=== PATIENT | male | born 1940 | race Caucasian/White ===

== ENCOUNTER 2016-09-27 22:28 | Inpatient (IN) | payer MEDICARE ==
[2016-09-27] MEDS ORDERED: ASPIRIN 81 MG CHEW PO STA (22:34)
[2016-09-27] MEDS ORDERED: NITROGLYCERIN OINT 1 INCH/GM PACKET TOPICAL STA (22:34)
--- NOTE | 2016-09-27 22:46 | ED ---
General Adult HPI - General Chief complaint: Chest Pain Stated complaint: CHEST PAIN Time Seen by Provider: 09/27/16 22:30 Source: patient, family, EMS, RN notes reviewed Mode of arrival: EMS Limitations: no limitations - History of Present Illness Initial comments: Patient is a pleasant 76-year-old male presenting to the emergency department complaining of chest discomfort. Onset of symptoms was 2 hours ago. Symptoms have now resolved in route to the hospital. Patient describes discomfort as pressure without radiation. Patient does have associated dyspnea. No nausea or diaphoresis. Patient was slightly nauseated a few days ago. Patient did have similar symptoms yesterday with exertion. Patient is currently symptom- free. No history of similar symptoms prior to yesterday. No leg pain or swelling. No cough or fever. - Related Data Home Medications Medication Instructions Recorded Confirmed Aspirin 325 mg PO DAILY 09/27/16 09/27/16 Gemfibrozil [Lopid] 600 mg PO AC-BID 09/27/16 09/27/16 Lisinopril-Hctz 10-12.5 mg 1 tab PO DAILY 09/27/16 09/27/16 [Zestoretic 10-12.5] Meloxicam [Mobic] 7.5 mg PO BID 09/27/16 09/27/16 metFORMIN HCL 1,000 mg PO BID 09/27/16 09/27/16 Allergies Allergy/AdvReac Type Severity Reaction Status Date / Time morphine AdvReac Increased Verified 09/27/16 23:23 Blood Pressure Review of Systems ROS Statement: Those systems with pertinent positive or pertinent negative responses have been documented in the HPI. ROS Other: All systems not noted in ROS Statement are negative. Constitutional: Denies: fever Eyes: Denies: eye pain ENT: Denies: ear pain Respiratory: Reports: dyspnea. Denies: cough Cardiovascular: Reports: chest pain Endocrine: Denies: fatigue Gastrointestinal: Denies: abdominal pain Genitourinary: Denies: dysuria Skin: Denies: rash Neurological: Denies: weakness Past Medical History Past Medical History: Diabetes Mellitus, Hearing Disorder / Deafness, Hyperlipidemia, Hypertension Additional Past Medical History / Comment(s): Arthritis History of Any Multi-Drug Resistant Organisms: None Reported Past Surgical History: No Surgical Hx Reported Past Psychological History: No Psychological Hx Reported Smoking Status: Former smoker Past Alcohol Use History: Occasional Past Drug Use History: None Reported General Exam Limitations: no limitations General appearance: alert, in no apparent distress Head exam: Present: atraumatic Eye exam: Present: normal appearance, PERRL ENT exam: Present: normal oropharynx Neck exam: Present: normal inspection Respiratory exam: Present: normal lung sounds bilaterally Cardiovascular Exam: Present: regular rate, normal rhythm Expanded Peripheral pulses: 2+: Radial (R), Radial (L), Dorsalis Pedis (R), Dorsalis Pedis (L) GI/Abdominal exam: Present: soft. Absent: tenderness Extremities exam: Present: normal inspection. Absent: pedal edema, calf tenderness Neurological exam: Present: alert Psychiatric exam: Present: normal affect, normal mood Skin exam: Present: normal color Course Vital Signs 09/27/16 09/27/16 09/28/16 22:34 23:24 00:46 Temperature 98.4 F 97.8 F Pulse Rate 63 65 68 Respiratory 16 16 16 Rate Blood Pressure 115/69 141/70 101/60 O2 Sat by Pulse 96 100 99 Oximetry EKG Findings - EKG Comments: EKG Findings:: Normal sinus rhythm 66. Normal intervals. Normal axis. Normal QRS. Normal ST-T. Medical Decision Making - Medical Decision Making Patient reevaluated and resting comfortably in bed. Patient and family updated on results and plan. Case was discussed with Dr. Bledsoe, who will admit for Dr. palacios, covering for Dr. Carrero. - Lab Data Result diagrams: 09/27/16 22:35 09/27/16 22:35 Lab Results 09/27/16 09/27/16 09/27/16 Range/Units 22:35 22:35 22:35 WBC 6.9 (3.8-10.6) k/uL RBC 3.12 L (4.30-5.90) m/uL Hgb 10.7 L (13.0-17.5) gm/dL Hct 30.4 L (39.0-53.0) % MCV 97.6 (80.0-100.0) fL MCH 34.4 (25.0-35.0) pg MCHC 35.2 (31.0-37.0) g/dL RDW 14.0 (11.5-15.5) % Plt Count 284 (150-450) k/uL Neutrophils % 63 % Lymphocytes % 22 % Monocytes % 5 % Eosinophils % 7 % Basophils % 1 % Neutrophils # 4.3 (1.3-7.7) k/uL Lymphocytes # 1.5 (1.0-4.8) k/uL Monocytes # 0.3 (0-1.0) k/uL Eosinophils # 0.5 (0-0.7) k/uL Basophils # 0.1 (0-0.2) k/uL PT (9.0-12.0) sec INR (<1.1) APTT (22.0-30.0) sec D-Dimer (<0.60) mg/L FEU Sodium 140 (137-145) mmol/L Potassium 4.7 (3.5-5.1) mmol/L Chloride 109 H (98-107) mmol/L Carbon Dioxide 21 L (22-30) mmol/L Anion Gap 10 mmol/L BUN 25 H (9-20) mg/dL Creatinine 1.70 H (0.66-1.25) mg/dL Est GFR (MDRD) Af Amer 48 (>60 ml/min/1.73 sqM) Est GFR (MDRD) Non-Af 39 (>60 ml/min/1.73 sqM) Glucose 191 H (74-99) mg/dL Calcium 9.3 (8.4-10.2) mg/dL Magnesium 2.0 (1.6-2.3) mg/dL Total Bilirubin 0.3 (0.2-1.3) mg/dL AST 16 L (17-59) U/L ALT 25 (21-72) U/L Alkaline Phosphatase 77 (38-126) U/L Total Creatine Kinase 254 H (55-170) U/L CK-MB (CK-2) 3.0 H* (0.0-2.4) ng/mL CK-MB (CK-2) Rel Index 1.2 Troponin I 0.017 (0.000-0.034) ng/mL NT-Pro-B Natriuret Pep pg/mL Total Protein 6.8 (6.3-8.2) g/dL Albumin 4.1 (3.5-5.0) g/dL 09/27/16 09/27/16 Range/Units 22:35 22:35 WBC (3.8-10.6) k/uL RBC (4.30-5.90) m/uL Hgb (13.0-17.5) gm/dL Hct (39.0-53.0) % MCV (80.0-100.0) fL MCH (25.0-35.0) pg MCHC (31.0-37.0) g/dL RDW (11.5-15.5) % Plt Count (150-450) k/uL Neutrophils % % Lymphocytes % % Monocytes % % Eosinophils % % Basophils % % Neutrophils # (1.3-7.7) k/uL Lymphocytes # (1.0-4.8) k/uL Monocytes # (0-1.0) k/uL Eosinophils # (0-0.7) k/uL Basophils # (0-0.2) k/uL PT 10.5 (9.0-12.0) sec INR 1.0 (<1.1) APTT 24.8 (22.0-30.0) sec D-Dimer 0.47 (<0.60) mg/L FEU Sodium (137-145) mmol/L Potassium (3.5-5.1) mmol/L Chloride (98-107) mmol/L Carbon Dioxide (22-30) mmol/L Anion Gap mmol/L BUN (9-20) mg/dL Creatinine (0.66-1.25) mg/dL Est GFR (MDRD) Af Amer (>60 ml/min/1.73 sqM) Est GFR (MDRD) Non-Af (>60 ml/min/1.73 sqM) Glucose (74-99) mg/dL Calcium (8.4-10.2) mg/dL Magnesium (1.6-2.3) mg/dL Total Bilirubin (0.2-1.3) mg/dL AST (17-59) U/L ALT (21-72) U/L Alkaline Phosphatase (38-126) U/L Total Creatine Kinase (55-170) U/L CK-MB (CK-2) (0.0-2.4) ng/mL CK-MB (CK-2) Rel Index Troponin I (0.000-0.034) ng/mL NT-Pro-B Natriuret Pep 148 pg/mL Total Protein (6.3-8.2) g/dL Albumin (3.5-5.0) g/dL Critical Care Time Critical Care Time: Yes Total Critical Care Time: 31 Disposition Clinical Impression: Unstable angina pectoris Disposition: ADMITTED IP TO THIS [facility] Referrals: Yuriy Carrero MD [Primary Care Provider] - 1-2 days Decision Time: 01:04
--- NOTE | 2016-09-27 22:54 | XR ---
EXAM: XR Chest, 2 Views CLINICAL HISTORY: Reason: Chest Pain TECHNIQUE: Frontal and lateral views of the chest. COMPARISON: No relevant prior studies available. FINDINGS: Lungs: Unremarkable. No consolidation. Pleural space: No pleural effusion. No pneumothorax. Heart: Unremarkable. No cardiomegaly. Mediastinum: Unremarkable. Bones/joints: No acute findings. IMPRESSION: No acute cardiopulmonary disease.
[2016-09-27 23:24] LABS: Basophils # (A) 0.1 k/uL (0-0.2); Basophils % (A) 1 %; CH 33.3; CHCM 34.3; Eosinophils # (A) 0.5 k/uL (0-0.7); Eosinophils % (A) 7 %; HCT 30.4 % (39.0-53.0); HDW 2.92; HGB 10.7 gm/dL (13.0-17.5); Luc % (Auto) 3; Lymphocytes # (A) 1.5 k/uL (1.0-4.8); Lymphocytes % (A) 22 %; MCH 34.4 pg (25.0-35.0); MCHC 35.2 g/dL (31.0-37.0); MCV 97.6 fL (80.0-100.0); Mean Platelet Volume 7.7; Monocytes # (A) 0.3 k/uL (0-1.0); Monocytes % (A) 5 %; Neutrophils # (A) 4.3 k/uL (1.3-7.7); Neutrophils % (A) 63 %; RBC 3.12 m/uL (4.30-5.90); WBC 6.9 k/uL (3.8-10.6); WBC (Perox) 7.17
[2016-09-27 23:35] LABS: Calcium 9.3 mg/dL (8.4-10.2); Potassium 4.7 mmol/L (3.5-5.1); Total Bilirubin 0.3 mg/dL (0.2-1.3); Total Protein 6.8 g/dL (6.3-8.2)
[2016-09-27 23:47] LABS: Partial Thromboplastin Time 24.8 sec (22.0-30.0); Prothrombin Time 10.5 sec (9.0-12.0)
[2016-09-28] LABS: Troponin I 0.017 ng/mL (0.000-0.034)
[2016-09-28] MEDS ORDERED: NITROGLYCERIN SL TABS 0.4 MG TAB SUBLINGUAL PRN ×2 (01:04→11:11)
[2016-09-28] MEDS ORDERED: HEPARIN SODIUM,PORCINE 5,000 UNIT/ML 1 ML VIAL IV ONE (01:04)
[2016-09-28] MEDS: HEPARIN SODIUM,PORCINE/D5W PMX 25,000 UNIT in DEXTROSE/WATER 1 500ML.BAG IV SCH ×2 (01:20→21:12)
[2016-09-28 04:39] LABS: Mean Platelet Volume 8.1
[2016-09-28 05:13] LABS: Creatine Kinase MB 3.1 ng/mL (0.0-2.4); Troponin I 0.085 ng/mL (0.000-0.034)
[2016-09-28] MEDS: NITROGLYCERIN OINT 1 INCH/GM PACKET TOPICAL SCH ×3 (05:54→17:28)
[2016-09-28] MEDS ORDERED: GEMFIBROZIL 600 MG TAB PO SCH (07:30)
[2016-09-28 07:41] LABS: Glucose,Whole Blood 140 mg/dL (75-99)
[2016-09-28] MEDS ORDERED: LISINOPRIL-HCTZ 10-12.5 MG 1 EACH TAB PO SCH (09:00)
[2016-09-28] MEDS ORDERED: ATORVASTATIN 80 MG TAB PO STA (11:11)
[2016-09-28] MEDS ORDERED: ASPIRIN 325 MG TAB PO STA (11:11)
[2016-09-28] MEDS ORDERED: ALPRAZolam 0.25 MG TAB PO PRN (11:11)
[2016-09-28] MEDS ORDERED: SODIUM CHLORIDE 0.9% 1,000 ML in EMPTY BAG 1 BAG IV ONE (11:11)
[2016-09-28] MEDS ORDERED: ALPRAZolam 0.5 MG TAB PO PRN (11:11)
--- NOTE | 2016-09-28 11:21 | P.CRDCN ---
History of Present Illness Consult date: 09/28/16 Requesting physician: Afshan Bledsoe Consult reason: chest pain Chief complaint: Chest pain History of present illness: This is a pleasant 76-year-old gentleman with history of hypertension , diabetes, hyperlipidemia, strong family history of premature coronary artery disease. Patient states he's been in his usual state of health, fairly active overall. [place], walking across a parking lot to his car, states that he has to stop [facility] because he developed chest pressure and mild shortness of breath. Symptoms lasted approximately 10 minutes and he was able to make it to his car without any problem. He had no further symptoms on the drive home. On arrival home he states that he ate one piece of pizza and shortly thereafter again developed severe chest pressure and heaviness with associated shortness of breath. EMS was called and the patient was brought to the hospital. Blood pressure on arrival here 116/68 with a heart rate in the 60s. 96% on room air. Hemoglobin 10.7, platelet count 284, d-dimer 0.47, potassium 4.7, BUN 25, creatinine 1.7. Initial troponin 0.017, subsequent troponin 0.085. EKG shows normal sinus rhythm with nonspecific ST-T wave changes in the lateral leads. Patient was initiated on IV heparin and aspirin. At the time of my examination this morning, patient has had no further symptoms of chest discomfort. Past Medical History Past Medical History: Diabetes Mellitus, Hearing Disorder / Deafness, Hyperlipidemia, Hypertension Additional Past Medical History / Comment(s): Arthritis History of Any Multi-Drug Resistant Organisms: None Reported Past Surgical History: Orthopedic Surgery Additional Past Surgical History / Comment(s): 10 knee surgeries, both rotator cuffs and left foot surgery Past Anesthesia/Blood Transfusion Reactions: No Reported Reaction Past Psychological History: No Psychological Hx Reported Smoking Status: Former smoker Past Drug Use History: None Reported - Past Family History Father Family Medical History: Cancer, Myocardial Infarction ([place]) Mother Family Medical History: Myocardial Infarction ([place]) Sister(s) Family Medical History: Cancer Daughter(s) Family Medical History: No Reported History Son(s) Family Medical History: No Reported History Medications and Allergies Home Medications Medication Instructions Recorded Confirmed Type Aspirin 325 mg PO DAILY 09/27/16 09/28/16 History Gemfibrozil [Lopid] 600 mg PO AC-BID 09/27/16 09/28/16 History Lisinopril-Hctz 10-12.5 mg 1 tab PO DAILY 09/27/16 09/28/16 History [Zestoretic 10-12.5] Meloxicam [Mobic] 7.5 mg PO BID 09/27/16 09/28/16 History metFORMIN HCL 1,000 mg PO BID 09/27/16 09/28/16 History Allergies Allergy/AdvReac Type Severity Reaction Status Date / Time morphine AdvReac Increased Verified 09/28/16 02:17 Blood Pressure Physical Exam Vitals: Vital Signs Temp Pulse Pulse Resp BP BP Pulse Ox 09/28/16 08:00 97.7 F 67 16 113/64 96 09/28/16 04:00 98 F 66 18 110/63 97 09/28/16 02:06 18 09/28/16 01:48 97.9 F 66 18 114/58 98 09/28/16 01:16 98 F 64 16 117/67 100 09/28/16 00:46 97.8 F 68 16 101/60 99 09/27/16 23:24 65 16 141/70 100 09/27/16 22:34 98.4 F 63 16 115/69 96 Intake and Output 09/27/16 09/28/16 09/28/16 22:59 06:59 14:59 Intake Total 80 Balance 80 Intake: Intake, IV Titration 80 Amount Heparin Sodium,Porcine/ 80 D5w Pmx 25,000 unit In Dextrose/Water 1 500ml. bag @ 11 UNITS/KG/HR 19. 95 mls/hr IV .Q24H [facility] Rx #:[id number] Other: Voiding Method Toilet Toilet # Voids 2 Weight 90.718 kg 93.2 kg PHYSICAL EXAMINATION: HEENT: Head is atraumatic, normocephalic. Pupils equal, round. Neck is supple. There is no elevated jugular venous pressure. HEART EXAMINATION: Heart S1, S2 normal. No murmur or gallop heard. CHEST EXAMINATION: Lungs are clear to auscultation and precussion. No chest wall tenderness is noted on palpation or with deep breathing. ABDOMEN: Soft, nontender. Bowel sounds are heard. No organomegaly noted. EXTREMITIES:1+ peripheral pulses with no evidence of peripheral edema and no calf tenderness noted. NEUROLOGIC patient is awake, alert and oriented -3. . Results 09/28/16 04:15 09/27/16 22:35 Cardiac Enzymes 09/27/16 09/27/16 09/28/16 Range/Units 22:35 22:35 04:15 AST 16 L (17-59) U/L CK-MB (CK-2) 3.0 H* 3.1 H* (0.0-2.4) ng/mL Troponin I 0.017 0.085 H* (0.000-0.034) ng/mL Coagulation 09/27/16 09/28/16 Range/Units 22:35 07:47 PT 10.5 (9.0-12.0) sec APTT 24.8 23.1 (22.0-30.0) sec CBC 09/27/16 09/28/16 Range/Units 22:35 04:15 WBC 6.9 (3.8-10.6) k/uL RBC 3.12 L (4.30-5.90) m/uL Hgb 10.7 L (13.0-17.5) gm/dL Hct 30.4 L (39.0-53.0) % Plt Count 284 262 (150-450) k/uL Comprehensive Metabolic Panel 09/27/16 Range/Units 22:35 Sodium 140 (137-145) mmol/L Potassium 4.7 (3.5-5.1) mmol/L Chloride 109 H (98-107) mmol/L Carbon Dioxide 21 L (22-30) mmol/L BUN 25 H (9-20) mg/dL Creatinine 1.70 H (0.66-1.25) mg/dL Glucose 191 H (74-99) mg/dL Calcium 9.3 (8.4-10.2) mg/dL AST 16 L (17-59) U/L ALT 25 (21-72) U/L Alkaline Phosphatase 77 (38-126) U/L Total Protein 6.8 (6.3-8.2) g/dL Albumin 4.1 (3.5-5.0) g/dL Current Medications Generic Name Dose Route Start Last Admin Trade Name Freq PRN Reason Stop Dose Admin Alprazolam 0.25 mg 09/28/16 11:11 Xanax PO Q6HR PRN Mild Anxiety Alprazolam 0.5 mg 09/28/16 11:11 Xanax PO Q6HR PRN Moderate Anxiety Aspirin 325 mg 09/29/16 09:00 Aspirin PO DAILY [facility] Aspirin 325 mg 09/28/16 11:11 Aspirin PO 09/28/16 11:12 ONCE STA Atorvastatin Calcium 80 mg 09/28/16 11:15 Lipitor PO DAILY [facility]INA Atorvastatin Calcium 80 mg 09/28/16 11:11 Lipitor PO 09/28/16 11:12 ONCE STA Heparin Sodium (Porcine) 0 unit 09/28/16 01:04 Heparin IV Q6HR PRN Low PTT Protocol Heparin Sodium/Dextrose 25,000 500 mls @ 19.95 mls/hr 09/28/16 01:15 01:20 unit/ IV Solution IV 11.02 units/kg/hr .Q24H GINA 20 mls/hr Protocol Administration 11 UNITS/KG/HR Sodium Chloride 1,000 mls @ 75 mls/hr 09/28/16 11:15 Saline 0.9% IV .[id number] [facility] Metformin HCl 1,000 mg 09/28/16 07:30 Glucophage PO BID-W/MEALS [facility] Metoprolol Tartrate 25 mg 09/28/16 11:15 Lopressor PO BID [facility] Nitroglycerin 1 inch 09/28/16 06:00 09/28/16 05:54 Nitro-Bid Oint TOPICAL Not Given Q6HR [facility] Nitroglycerin 0.4 mg 09/28/16 01:04 Nitrostat SUBLINGUAL Q5M PRN Chest Pain Nitroglycerin 0.4 mg 09/28/16 11:11 Nitrostat SUBLINGUAL Q5M PRN Chest Pain Intake and Output 09/27/16 09/28/16 09/28/16 22:59 06:59 14:59 Intake Total 80 Balance 80 Intake: Intake, IV Titration 80 Amount Heparin Sodium,Porcine/ 80 D5w Pmx 25,000 unit In Dextrose/Water 1 500ml. bag @ 11 UNITS/KG/HR 19. 95 mls/hr IV .Q24H [facility] Rx #:[id number] Other: Voiding Method Toilet Toilet # Voids 2 Weight 90.718 kg 93.2 kg 09/28/16 04:15 09/27/16 22:35 EKG Interpretations (text) EKG shows normal sinus rhythm with nonspecific ST-T wave changes in the lateral leads. Assessment and Plan Plan: Assessment and plan #1 non-ST elevation myocardial infarction #2 diabetes #3 hypertension #4 hyperlipidemia #5 strong family history of premature coronary artery disease in his father. #6 mild renal insufficiency #7 anemia Plan We will obtain an echocardiogram with Doppler study. We will also discontinue the lisinopril hydrochlorothiazide and hydrate the patient at 75 mL per hour. Discontinue Lopid and start the patient on Lipitor 80 mg daily. Continue IV heparin along with Nitropaste. Patient has been advised to undergo cardiac catheterization for more definitive diagnosis. The risks and the benefits were explained to the patient in detail and he is willing to proceed. We will hydrate the patient for the next 24 hours and proceed with cardiac catheterization in the morning. DNP note has been reviewed, I agree with a documented findings and plan of care. Patient was seen and examined.
[2016-09-28 11:43] LABS: Creatine Kinase MB 3.1 ng/mL (0.0-2.4); Troponin I 0.098 ng/mL (0.000-0.034)
[2016-09-28] MEDS: metFORMIN 500 MG TAB PO SCH ×3 (11:44→17:28)
[2016-09-28] MEDS: HEPARIN SODIUM,PORCINE 5,000 UNIT/ML 1 ML VIAL IV PRN ×2 (11:46→19:35)
[2016-09-28 12:25] LABS: Glucose,Whole Blood 136 mg/dL (75-99)
[2016-09-28] MEDS: SODIUM CHLORIDE 0.9% 1,000 ML IV SCH (16:16)
[2016-09-28 16:49] LABS: Glucose,Whole Blood 158 mg/dL (75-99)
[2016-09-28] MEDS: METOPROLOL TARTRATE 25 MG TAB PO SCH ×2 (17:28→20:25)
--- NOTE | 2016-09-28 19:02 | P.HPIM ---
History of Present Illness H&P Date: 09/28/16 76-year-old gentleman with history of high blood pressure who is legally blind comes in the hospital with an episode of chest pressure midsternal location that started with exertion was relieved with rest. Patient continued to have recurrent episodes of chest pain with exertion over the next 2 days hence came in the hospital for further evaluation EKG did not reveal ST-T wave elevations initially Patient continues to have episodes of chest pain when he ambulates to the restroom Patient did have a troponin leak that has been trending up Patient was initially admitted to the observation unit however with a non-Q- wave elevation myocardial infarction patient is triaged to the selective care unit Currently patient denies having headaches blurry vision nausea vomiting chest pain difficulty breathing abdominal pain urinary urgency or frequency however patient is currently resting Review of Systems All systems: negative (Noted in HPI) Past Medical History Past Medical History: Diabetes Mellitus, Hearing Disorder / Deafness, Hyperlipidemia, Hypertension Additional Past Medical History / Comment(s): Arthritis History of Any Multi-Drug Resistant Organisms: None Reported Past Surgical History: Orthopedic Surgery Additional Past Surgical History / Comment(s): 10 knee surgeries, both rotator cuffs and left foot surgery Past Anesthesia/Blood Transfusion Reactions: No Reported Reaction Past Psychological History: No Psychological Hx Reported Smoking Status: Former smoker Past Drug Use History: None Reported - Past Family History Father Family Medical History: Cancer, Myocardial Infarction ([place]) Mother Family Medical History: Myocardial Infarction ([place]) Sister(s) Family Medical History: Cancer Daughter(s) Family Medical History: No Reported History Son(s) Family Medical History: No Reported History Medications and Allergies Home Medications Medication Instructions Recorded Confirmed Type Aspirin 325 mg PO DAILY 09/27/16 09/28/16 History Gemfibrozil [Lopid] 600 mg PO AC-BID 09/27/16 09/28/16 History Lisinopril-Hctz 10-12.5 mg 1 tab PO DAILY 09/27/16 09/28/16 History [Zestoretic 10-12.5] Meloxicam [Mobic] 7.5 mg PO BID 09/27/16 09/28/16 History metFORMIN HCL 1,000 mg PO BID 09/27/16 09/28/16 History Allergies Allergy/AdvReac Type Severity Reaction Status Date / Time morphine AdvReac Increased Verified 09/28/16 02:17 Blood Pressure Physical Exam Vitals: Vital Signs Temp Pulse Pulse Resp BP BP Pulse Ox 09/28/16 16:00 98.9 F 63 18 148/77 95 09/28/16 12:50 97.8 F 64 16 118/69 98 09/28/16 12:00 67 16 09/28/16 08:00 97.7 F 67 16 113/64 96 09/28/16 04:00 98 F 66 18 110/63 97 09/28/16 02:06 18 09/28/16 01:48 97.9 F 66 18 114/58 98 09/28/16 01:16 98 F 64 16 117/67 100 09/28/16 00:46 97.8 F 68 16 101/60 99 09/27/16 23:24 65 16 141/70 100 09/27/16 22:34 98.4 F 63 16 115/69 96 Intake and Output 09/28/16 09/28/16 09/28/16 06:59 14:59 22:59 Intake Total 80 209.333 360 Balance 80 209.333 360 Intake: Intake, IV Titration 80 209.333 Amount Heparin Sodium,Porcine/ 80 209.333 D5w Pmx 25,000 unit In Dextrose/Water 1 500ml. bag @ 11 UNITS/KG/HR 19. 95 mls/hr IV .Q24H [facility] Rx #:[id number] Oral 360 Other: Voiding Method Toilet Toilet Toilet # Voids 2 Weight 93.2 kg Physical exam Gen. appearance oriented 3 in no distress Neck is supple no JVD Lungs good air entry clear to auscultation no rhonchi or wheezing Heart S1-S2 heard regular rate and rhythm no murmurs appreciated Abdomen is soft nontender no organomegaly bowel sounds are intact Neurologically cranial nerves II-12 grossly intact no focal motor or sensory deficits noted Skin no abnormalities appreciated Results CBC & Chem 7: 09/28/16 04:15 09/27/16 22:35 Labs: Abnormal Lab Results - Last 24 Hours (Table) 09/27/16 09/27/16 09/27/16 Range/Units 22:35 22:35 22:35 RBC 3.12 L (4.30-5.90) m/uL Hgb 10.7 L (13.0-17.5) gm/dL Hct 30.4 L (39.0-53.0) % APTT (22.0-30.0) sec Chloride 109 H (98-107) mmol/L Carbon Dioxide 21 L (22-30) mmol/L BUN 25 H (9-20) mg/dL Creatinine 1.70 H (0.66-1.25) mg/dL Glucose 191 H (74-99) mg/dL POC Glucose (mg/dL) (75-99) mg/dL AST 16 L (17-59) U/L Total Creatine Kinase 254 H (55-170) U/L CK-MB (CK-2) 3.0 H* (0.0-2.4) ng/mL Troponin I (0.000-0.034) ng/mL 09/28/16 09/28/16 09/28/16 Range/Units 04:15 07:39 10:24 RBC (4.30-5.90) m/uL Hgb (13.0-17.5) gm/dL Hct (39.0-53.0) % APTT (22.0-30.0) sec Chloride (98-107) mmol/L Carbon Dioxide (22-30) mmol/L BUN (9-20) mg/dL Creatinine (0.66-1.25) mg/dL Glucose (74-99) mg/dL POC Glucose (mg/dL) 140 H (75-99) mg/dL AST (17-59) U/L Total Creatine Kinase 221 H 210 H (55-170) U/L CK-MB (CK-2) 3.1 H* 3.1 H* (0.0-2.4) ng/mL Troponin I 0.085 H* 0.098 H* (0.000-0.034) ng/mL 09/28/16 09/28/16 09/28/16 Range/Units 12:24 16:42 18:12 RBC (4.30-5.90) m/uL Hgb (13.0-17.5) gm/dL Hct (39.0-53.0) % APTT 34.6 H (22.0-30.0) sec Chloride (98-107) mmol/L Carbon Dioxide (22-30) mmol/L BUN (9-20) mg/dL Creatinine (0.66-1.25) mg/dL Glucose (74-99) mg/dL POC Glucose (mg/dL) 136 H 158 H (75-99) mg/dL AST (17-59) U/L Total Creatine Kinase (55-170) U/L CK-MB (CK-2) (0.0-2.4) ng/mL Troponin I (0.000-0.034) ng/mL Thrombosis Risk Factor Assmnt - Choose All That Apply Any of the Below Risk Factors Present?: Yes Each Factor Represents 1 point: Obesity (BMI >25) Each Risk Factor Represents 3 Points: Age 75 years or older Other congenital or acquired thrombophilia - If yes, enter type in comment: No Thrombosis Risk Factor Assessment Total Risk Factor Score: 4 Thrombosis Risk Factor Assessment Level: Moderate Risk Assessment and Plan Plan: #1 acute non-Q-wave elevation myocardial infarction #2 dyslipidemia #3 essential hypertension #4 diabetes mellitus type 2 para graft #5 macular degeneration, legally blind #6 CK D stage III Plan DC metformin at this time is contraindicated greater than creatinine of 1.5 Continue with hydration patient is to undergo cardiac catheterization tomorrow Patient has typical features of coronary disease We'll need renal protection as patient is a moderate risk for contrast-induced nephropathy We'll start the patient on Mucomyst as well
[2016-09-28 20:53] LABS: Glucose,Whole Blood 142 mg/dL (75-99)
[2016-09-28 21:23] LABS: Hemoglobin A1C 6.6 % (4.2-6.1)
[2016-09-29] MEDS: NITROGLYCERIN OINT 1 INCH/GM PACKET TOPICAL SCH ×3 (04:02→19:58)
[2016-09-29 05:47] LABS: Glucose,Whole Blood 136 mg/dL (75-99)
[2016-09-29 06:32] LABS: Mean Platelet Volume 7.5
[2016-09-29] MEDS: ATORVASTATIN 80 MG TAB PO SCH ×2 (06:32→08:13)
[2016-09-29 07:34] LABS: Calcium 9.4 mg/dL (8.4-10.2); Potassium 4.9 mmol/L (3.5-5.1)
[2016-09-29] MEDS: METOPROLOL TARTRATE 25 MG TAB PO SCH ×2 (08:29→20:07)
[2016-09-29] MEDS ORDERED: ASPIRIN 325 MG TAB PO SCH (09:00)
[2016-09-29] MEDS ORDERED: ACETYLCYSTEINE 800 MG/4 ML VIAL PO SCH (09:00)
--- NOTE | 2016-09-29 10:39 | ECHOF ---
Referral Reason:assess lvf MEASUREMENTS -------- HEIGHT: 182.9 cm WEIGHT: 93.0 kg BP: 113/64 IVSd: 1.2 cm (0.6 - 1.1) LVIDd: 3.8 cm (3.9 - 5.3) LVPWd: 1.5 cm (0.6 - 1.1) IVSs: 1.8 cm LVIDs: 1.8 cm LVPWs: 2.1 cm Ao Diam: 3.5 cm (2.0 - 3.7) AV Cusp: 1.3 cm (1.5 - 2.6) LA Diam: 3.0 cm (2.7 - 3.8) MV EXCURSION: 13.536 mm (> 18.000) MV EF SLOPE: 81 mm/s (70 - 150) EPSS: 0.5 cm MV E Americo: 0.69 m/s MV DecT: 328 ms MV A Americo: 0.70 m/s MV E/A Ratio: 0.99 AV maxP.75 mmHg AV meanP.79 mmHg RAP: 5.00 mmHg RVSP: 19.08 mmHg FINDINGS -------- Sinus rhythm. This was a technically good study. There is moderate concentric left ventricular hypertrophy. Overall left ventricular systolic function is normal with, an EF between 55 - 60 %. The right ventricle is normal in size and function. The left atrium is normal in size. The right atrium is normal in size. Aortic valve is trileaflet and is moderately thickened. There is mild aortic stenosis present. Peak/mean gradient across the Aortic Valve is 14.75mmHg / 7.79mmHg. The mitral valve leaflets are mildly thickened. Mild mitral regurgitation is present. Mild tricuspid regurgitation present. The right ventricular systolic pressure, as measured by Doppler, is 19.08mmHg. Pulmonic valve appears structurally normal. The aortic root size is normal. The pericardium is normal. CONCLUSIONS -------- 1. Sinus rhythm. 2. Peak/mean gradient across the Aortic Valve is 14.75mmHg / 7.79mmHg. 3. The mitral valve leaflets are mildly thickened. 4. Mild mitral regurgitation is present. 5. Mild tricuspid regurgitation present. 6. The right ventricular systolic pressure, as measured by Doppler, is 19.08mmHg. 7. Pulmonic valve appears structurally normal. 8. The aortic root size is normal. 9. The pericardium is normal. 10. This was a technically good study. 11. There is moderate concentric left ventricular hypertrophy. 12. Overall left ventricular systolic function is normal with, an EF between 55 - 60 %. 13. The right ventricle is normal in size and function. 14. The left atrium is normal in size. 15. The right atrium is normal in size. 16. Aortic valve is trileaflet and is moderately thickened. 17. There is mild aortic stenosis present. [employer] GUARD: Richa Reis RDCS
[2016-09-29] MEDS: MIDAZOLAM 2 MG/2 ML VIAL IVP ONE ×2 (11:19→11:51)
[2016-09-29] MEDS ORDERED: fentaNYL (PF) 50 MCG/ML 2 ML AMP IVP ONE (11:20)
[2016-09-29] MEDS ORDERED: LIDOCAINE 2% INJ 20 MG/ML SQ ONE ×2 (11:23)
[2016-09-29] MEDS ORDERED: TICAGRELOR 90 MG TAB PO ONE (11:41)
[2016-09-29] MEDS: SODIUM CHLORIDE 0.9% 1,000 ML IV SCH ×2 (12:00)
[2016-09-29] MEDS ORDERED: SODIUM CHLORIDE 0.9% IV ONE (12:16)
[2016-09-29] MEDS ORDERED: BIVALIRUDIN BOLUS 250 MG/50 ML IV ONE (12:16)
[2016-09-29] MEDS ORDERED: BIVALIRUDIN IV ONE (12:16)
[2016-09-29] MEDS ORDERED: IODIXANOL 320 MG/ML 100 ML IV ONE ×2 (12:30)
[2016-09-29] MEDS ORDERED: RX INFO: IV CONTRAST WAS GIVEN 1 EACH MISC MISCELLANE PRN (12:47)
[2016-09-29] MEDS ORDERED: MAG HYDROX/AL HYDROX/SIMETH 30 ML CUP PO PRN (12:47)
[2016-09-29] MEDS ORDERED: NITROGLYCERIN SL TABS 0.4 MG TAB SUBLINGUAL PRN (12:47)
[2016-09-29] MEDS ORDERED: ZOLPIDEM 5 MG TAB PO PRN (12:47)
[2016-09-29] MEDS ORDERED: ATROPINE SULFATE 0.1 MG/ML 10ML SYRINGE IV PRN (12:47)
[2016-09-29] MEDS ORDERED: SODIUM CHLORIDE 0.9% 1,000 ML IV SCH (13:00)
[2016-09-29 13:12] LABS: Glucose,Whole Blood 127 mg/dL (75-99)
[2016-09-29 16:55] LABS: Glucose,Whole Blood 140 mg/dL (75-99)
--- NOTE | 2016-09-29 17:10 | P.PN ---
Subjective 76-year-old gentleman with history of high blood pressure who is legally blind comes in the hospital with an episode of chest pressure midsternal location that started with exertion was relieved with rest. Patient continued to have recurrent episodes of chest pain with exertion over the next 2 days hence came in the hospital for further evaluation EKG did not reveal ST-T wave elevations initially Patient continues to have episodes of chest pain when he ambulates to the restroom Patient did have a troponin leak that has been trending up Patient was initially admitted to the observation unit however with a non-Q- wave elevation myocardial infarction patient is triaged to the selective care unit Currently patient denies having headaches blurry vision nausea vomiting chest pain difficulty breathing abdominal pain urinary urgency or frequency however patient is currently resting 2016 Patient is seen post catheterization denies having any chest pain dizziness nausea vomiting abdominal pain Physical exam Gen. appearance oriented 3 in no distress Neck is supple no JVD Lungs good air entry clear to auscultation no rhonchi or wheezing Heart S1-S2 heard regular rate and rhythm no murmurs appreciated Abdomen is soft nontender no organomegaly bowel sounds are intact Neurologically cranial nerves II-12 grossly intact no focal motor or sensory deficits noted Skin no abnormalities appreciated Objective - Vital Signs Vital signs: Vital Signs Temp 98.7 F 09/29/16 15:32 Pulse 64 09/29/16 16:00 Resp 18 09/29/16 16:00 BP 133/76 09/29/16 15:32 Pulse Ox 97 09/29/16 15:32 Intake & Output 09/28/16 09/29/16 09/29/16 18:59 06:59 18:59 Intake Total 569.333 748.216 400.96 Balance 569.333 748.216 400.96 Weight 92.5 kg Intake: IV 220.96 Intake, IV Titration 209.333 748.216 Amount Heparin Sodium,Porcine/ 209.333 248.216 D5w Pmx 25,000 unit In Dextrose/Water 1 500ml. bag @ 11 UNITS/KG/HR 19. 95 mls/hr IV .Q24H [facility] Rx #:[id number] Sodium Chloride 0.9% 1, 500 000 ml @ 75 mls/hr IV . [id number] [facility] Rx#:[id number] Oral 360 180 Other: Voiding Method Toilet Toilet # Voids 1 1 # Bowel Movements 1 - Labs CBC & Chem 7: 09/29/16 05:41 09/29/16 05:41 Labs: Abnormal Lab Results - Last 24 Hours (Table) 09/28/16 09/28/16 09/28/16 Range/Units 04:15 18:12 20:43 APTT 34.6 H (22.0-30.0) sec Carbon Dioxide (22-30) mmol/L BUN (9-20) mg/dL Creatinine (0.66-1.25) mg/dL Glucose (74-99) mg/dL POC Glucose (mg/dL) 142 H (75-99) mg/dL Hemoglobin A1c 6.6 H (4.2-6.1) % Triglycerides (<150) mg/dL HDL Cholesterol (40-60) mg/dL 09/29/16 09/29/16 09/29/16 Range/Units 01:55 05:41 05:45 APTT 50.5 H (22.0-30.0) sec Carbon Dioxide 20 L (22-30) mmol/L BUN 23 H (9-20) mg/dL Creatinine 1.70 H (0.66-1.25) mg/dL Glucose 134 H (74-99) mg/dL POC Glucose (mg/dL) 136 H (75-99) mg/dL Hemoglobin A1c (4.2-6.1) % Triglycerides 318 H (<150) mg/dL HDL Cholesterol 38 L (40-60) mg/dL 09/29/16 09/29/16 Range/Units 12:53 16:50 APTT (22.0-30.0) sec Carbon Dioxide (22-30) mmol/L BUN (9-20) mg/dL Creatinine (0.66-1.25) mg/dL Glucose (74-99) mg/dL POC Glucose (mg/dL) 127 H 140 H (75-99) mg/dL Hemoglobin A1c (4.2-6.1) % Triglycerides (<150) mg/dL HDL Cholesterol (40-60) mg/dL Assessment and Plan Plan: #1 acute non-Q-wave elevation myocardial infarction status post RCA intervention #2 dyslipidemia #3 essential hypertension #4 diabetes mellitus type 2 para graft #5 macular degeneration, legally blind #6 CK D stage III Plan DC metformin completely HbA1c is 6.6 discussed with the patient and the family other medications that could be possibly used likely be Januvia which would be renal corrected However at this time we'll hold off on any medications discussed regarding glucose monitoring at home fasting and discussing with Dr. Carrero a week later DC Mucomyst Status post RCA PTCA. Continue on dual antiplatelet therapy with aspirin and brillanta
[2016-09-29] MEDS ORDERED: ACETAMINOPHEN TAB 325 MG TAB PO PRN (19:59)
[2016-09-29] MEDS: TICAGRELOR 90 MG TAB PO SCH (20:07)
[2016-09-29] MEDS: INSULIN LISPRO (humaLOG) 300 UNIT/3 ML VIAL SQ SCH (20:14)
[2016-09-29 20:25] LABS: Glucose,Whole Blood 192 mg/dL (75-99)
[2016-09-30] MEDS: SODIUM CHLORIDE 0.9% 1,000 ML IV SCH (04:30)
[2016-09-30 05:25] VITALS: RESP 18
[2016-09-30 06:06] LABS: Basophils % (A) 1 %; CH 33.7; CHCM 35.1; Eosinophils # (A) 0.4 k/uL (0-0.7); Eosinophils % (A) 5 %; HCT 32.2 % (39.0-53.0); HDW 2.82; HGB 10.8 gm/dL (13.0-17.5); Luc # (Auto) 0.13; Luc % (Auto) 2; Lymphocytes # (A) 1.4 k/uL (1.0-4.8); Lymphocytes % (A) 17 %; MCH 32.5 pg (25.0-35.0); MCHC 33.6 g/dL (31.0-37.0); MCV 96.6 fL (80.0-100.0); Mean Platelet Volume 7.6; Monocytes # (A) 0.4 k/uL (0-1.0); Monocytes % (A) 4 %; Neutrophils # (A) 5.8 k/uL (1.3-7.7); Neutrophils % (A) 71 %; RBC 3.34 m/uL (4.30-5.90); RDW 13.8 % (11.5-15.5); WBC 8.1 k/uL (3.8-10.6); WBC (Perox) 8.23
[2016-09-30 06:07] LABS: Glucose,Whole Blood 139 mg/dL (75-99)
[2016-09-30 06:16] LABS: Calcium 9.3 mg/dL (8.4-10.2); Potassium 4.9 mmol/L (3.5-5.1)
[2016-09-30] MEDS: INSULIN LISPRO (humaLOG) 300 UNIT/3 ML VIAL SQ SCH ×2 (06:52→12:24)
[2016-09-30] MEDS: ATORVASTATIN 80 MG TAB PO SCH (08:26)
[2016-09-30] MEDS: TICAGRELOR 90 MG TAB PO SCH (08:26)
[2016-09-30] MEDS: METOPROLOL TARTRATE 25 MG TAB PO SCH (08:26)
[2016-09-30] MEDS ORDERED: ASPIRIN 81 MG CHEW PO SCH (09:00)
[2016-09-30 11:18] VITALS: PULSE 67
[2016-09-30 11:37] LABS: Glucose,Whole Blood 177 mg/dL (75-99)
[2016-09-30 12:04] VITALS: BP 123/72; TEMP 99.6
--- NOTE | 2016-09-30 13:31 | P.PN ---
Subjective Principal diagnosis: Non-STEMI This is a pleasant 76-year-old gentleman who presented to the hospital with a non-ST elevation myocardial infarction. He was taken to the cardiac catheterization lab yesterday where he subsequently underwent angioplasty and stenting of the RCA by Dr. Arreola. Patient did develop a hematoma through the night last night requiring FemoStop to be kept on monitor. His groin this morning is soft, there is no evidence of bruit, no hematoma and good distal pulse. EKG from this morning shows a normal sinus rhythm with no changes from post-PCI. Hemoglobin 10.8, platelet count 284, potassium 4.9, BUN 20, creatinine 1.5. Blood pressure 122/70 with a heart rate in the 70s. Patient denies any chest pain, breathing has been stable. Objective - Vital Signs Vital signs: Vital Signs Temp 99.6 F 09/30/16 12:00 Pulse 67 09/30/16 12:00 Resp 18 09/30/16 12:00 BP 123/72 09/30/16 12:00 Pulse Ox 97 09/30/16 12:00 Intake & Output 09/29/16 09/30/16 09/30/16 18:59 06:59 18:59 Intake Total 600.96 240 Output Total 1700 300 Balance 600.96 -1700 -60 Weight 93.2 kg Intake: IV 220.96 Oral 380 240 Output: Urine 1700 300 Other: Voiding Method Toilet # Voids 1 400 - Exam PHYSICAL EXAMINATION: HEENT: Head is atraumatic, normocephalic. Pupils equal, round. Neck is supple. There is no elevated jugular venous pressure. HEART EXAMINATION: Heart S1, S2 normal. No murmur or gallop heard. CHEST EXAMINATION: Lungs are clear to auscultation and precussion. No chest wall tenderness is noted on palpation or with deep breathing. ABDOMEN: Soft, nontender. Bowel sounds are heard. No organomegaly noted]. Right groin soft, no evidence of any hematoma, mild ecchymosis. EXTREMITIES:[ 2+ peripheral pulses with no evidence of peripheral edema and no calf tenderness noted]. NEUROLOGIC [patient is awake, alert and oriented -3.] . - Labs CBC & Chem 7: 09/30/16 05:34 09/30/16 05:34 Labs: Abnormal Lab Results - Last 24 Hours (Table) 09/29/16 09/29/16 09/30/16 Range/Units 16:50 20:12 05:34 RBC 3.34 L (4.30-5.90) m/uL Hgb 10.8 L (13.0-17.5) gm/dL Hct 32.2 L (39.0-53.0) % Chloride (98-107) mmol/L Carbon Dioxide (22-30) mmol/L Creatinine (0.66-1.25) mg/dL Glucose (74-99) mg/dL POC Glucose (mg/dL) 140 H 192 H (75-99) mg/dL 09/30/16 09/30/16 09/30/16 Range/Units 05:34 06:06 11:24 RBC (4.30-5.90) m/uL Hgb (13.0-17.5) gm/dL Hct (39.0-53.0) % Chloride 109 H (98-107) mmol/L Carbon Dioxide 20 L (22-30) mmol/L Creatinine 1.54 H (0.66-1.25) mg/dL Glucose 137 H (74-99) mg/dL POC Glucose (mg/dL) 139 H 177 H (75-99) mg/dL Assessment and Plan Plan: Assessment and plan #1 non-ST elevation myocardial infarction status post stent placement to the right coronary artery. #2 diabetes #3 hypertension #4 hyperlipidemia #5 strong family history of premature coronary artery disease in his father. #6 mild renal insufficiency #7 anemia Plan Echocardiogram with Doppler study was performed which revealed an ejection fraction of 55%. Patient may be able to be discharged home today. We'll make him a follow-up appointment to see Dr. VC Chand in the office in one week post discharge. He will be discharged home on aspirin 81 mg daily, Lipitor 80 mg daily, metoprolol tartrate 25 mg one tablet by mouth twice a day, Brilinta 90 mg one tablet by mouth twice a day will be taken for one month, then the patient will take Plavix 75 mg daily, he will also go on nitroglycerin sublingual as needed for chest pain. Patient has been educated regarding his medication and he has been provided prescriptions for all of the above medications as well DNP note has been reviewed, I agree with a documented findings and plan of care. Patient was seen and examined.
--- NOTE | 2016-09-30 18:18 | P.DS ---
Providers Date of admission: 09/28/16 16:01 Attending physician: Afshan Bledsoe Consults: 09/28/16 01:04 Consult Physician Urgent Consulting Provider: Thien Addison Consult Reason/Comments: ua Do you want consulting provider notified?: Yes 09/29/16 12:47 Consult Physician Routine Consulting Provider: [facility] Consult Reason/Comments: Post Interventional patient Do you want consulting provider notified?: Already Contacted Primary care physician: [facility] Course: 76-year-old gentleman with history of high blood pressure who is legally blind comes in the hospital with an episode of chest pressure midsternal location that started with exertion was relieved with rest. Patient continued to have recurrent episodes of chest pain with exertion over the next 2 days hence came in the hospital for further evaluation EKG did not reveal ST-T wave elevations initially Patient continues to have episodes of chest pain when he ambulates to the restroom Patient did have a troponin leak that has been trending up Patient was initially admitted to the observation unit however with a non-Q- wave elevation myocardial infarction patient is triaged to the selective care unit Currently patient denies having headaches blurry vision nausea vomiting chest pain difficulty breathing abdominal pain urinary urgency or frequency however patient is currently resting 2016 Patient is seen post catheterization denies having any chest pain dizziness nausea vomiting abdominal pain Physical exam Gen. appearance oriented 3 in no distress Neck is supple no JVD Lungs good air entry clear to auscultation no rhonchi or wheezing Heart S1-S2 heard regular rate and rhythm no murmurs appreciated Abdomen is soft nontender no organomegaly bowel sounds are intact Neurologically cranial nerves II-12 grossly intact no focal motor or sensory deficits noted Skin no abnormalities appreciated Assessment and Plan Plan: #1 acute non-Q-wave elevation myocardial infarction status post RCA intervention #2 dyslipidemia #3 essential hypertension #4 diabetes mellitus type 2 #5 macular degeneration, legally blind #6 CK D stage III Plan DC metformin completely HbA1c is 6.6 discussed with the patient and the family other medications that could be possibly used likely be Januvia which would be renal corrected However at this time we'll hold off on any medications discussed regarding glucose monitoring at home fasting and discussing with Dr. Carrero a week later Status post RCA PTCA. Continue on dual antiplatelet therapy with aspirin and brillanta Plan - Discharge Summary New Discharge Prescriptions: New Aspirin 81 mg PO DAILY #30 Atorvastatin [Lipitor] 80 mg PO DAILY #30 tab Metoprolol Tartrate [Lopressor] 25 mg PO BID #60 tab Ticagrelor [Brilinta] 90 mg PO BID tab Lisinopril [Zestril] 10 mg PO DAILY #30 tab Clopidogrel [Plavix] 75 mg PO DAILY #30 tablet Discontinued Lisinopril-Hctz 10-12.5 mg [Zestoretic 10-12.5] 1 tab PO DAILY metFORMIN HCL 1,000 mg PO BID Meloxicam [Mobic] 7.5 mg PO BID Gemfibrozil [Lopid] 600 mg PO AC-BID Aspirin 325 mg PO DAILY Discharge Medication List Aspirin 81 mg PO DAILY #30 09/30/16 [Rx] Atorvastatin [Lipitor] 80 mg PO DAILY #30 tab 09/30/16 [Rx] Clopidogrel [Plavix] 75 mg PO DAILY #30 tablet 09/30/16 [Rx] Lisinopril [Zestril] 10 mg PO DAILY #30 tab 09/30/16 [Rx] Metoprolol Tartrate [Lopressor] 25 mg PO BID #60 tab 09/30/16 [Rx] Ticagrelor [Brilinta] 90 mg PO BID tab 09/30/16 [Rx] Follow up Appointment(s)/Referral(s): Yuriy Carrero MD [Primary Care Provider] - 10/07/16 1:00 pm Jennifer Chand MD [STAFF PHYSICIAN] - 10/15/16 4:15 pm Patient Instructions/Handouts: *Surgery [facility] - After Heart Catheterization - Heavy Lift Rigger Instructions Activity/Diet/Wound Care/Special Instructions: pt has free 30 day supply of Brillinta filled in [facility]. Pt is to follow up with pharmacy technician instructor for continued treatment. Discharge Disposition: HOME SELF-CARE
--- NOTE | 2016-10-02 11:53 | PCN ---
ANGIOPLASTY PROCEDURE NOTE Mr. Lozada is a 76-year-old male who presented with symptoms of non-STEMI. He had abnormal renal function. He was hydrated and underwent cardiac catheterization by Dr. Uri Chand and was found to have critical stenosis involving the mid right coronary artery. In view of that, recommendation was made regarding angioplasty and stenting. The procedure as well as the risks and the complications were discussed with the patient who is in full understanding and agreement. PROCEDURE: A 6-Singaporean FR4 guiding catheter was introduced into the system. After cannulating the right coronary ostium, 0.014 balanced medium weight J wire was advanced across the lesion, positioned distally then a 2.5 x 12 mm Trek balloon was advanced, one inflation at 8 atmospheres was done. Following that the balloon was removed and a 3.5 x 15 mm Xience Alpine stent was deployed , post dilated at 12 atmospheres. After the last inflation, after appropriate wait, the balloon and the guidewire were withdrawn back in the guiding catheter. Images were obtained and repeated. Those images reveal stable, successful stenting at that point. The guiding catheter, the balloon and the guidewire were removed. The sheath was removed. Hemostasis was obtained with deployment of Angio-Seal. There was no immediate complication. The patient was returned to his room in stable condition. The patient received Angio-Max per protocol as well as oral loading dose of Brilinta. He had chest discomfort with the inflation that resolved at the end of the procedure. RESULTS: Successful stenting of the mid right coronary artery with reduction in stenosis from 99% to 0%. RECOMMENDATION: The patient will be continued on aspirin, Brilinta, beta schuyler and statin. The importance of dual antiplatelet treatment was discussed with the patient and his family and they are in full understanding and agreement. DURATION OF PROCEDURE: 24 minutes. FAROOQ
--- NOTE | 2016-10-02 12:01 | MISC ---
September 29, 2016 YUNIOR GAMA MD Dear Dr. Gama: I had the opportunity to perform coronary angioplasty and stenting on Mr. Mayen at [facility] on the 29 of September and a full copy of procedure note will be forwarded to you. In brief, he underwent successful stenting of the mid right coronary artery using a drug eluting stent. I am hopeful that this procedure will stabilize his status and I would recommend continuing dual antiplatelet treatment for at least one year without any interruption. I want to thank you again for allowing me the opportunity to participate in his care. Please feel free to call for any questions. Sincerely yours, Adal TRIVEDI
--- NOTE | 2016-10-02 12:30 | PCN ---
CARDIAC CATHETERIZATION: Mr. Lozada is a 76 year old gentleman who was admitted to the hospital with non-Q wave myocardial infarction. The patient's creatinine was 1.7. He was hydrated. Because of the positive troponin level, the patient was subsequently advised cardiac catheterization. PROCEDURE: The right groin was prepped and draped in the usual manner and the skin was infiltrated with 2% Xylocaine. The right femoral artery was entered using Seldinger technique and a #6 Swedish sheath was placed in. Selective coronary angiography was then performed in multiple projections and left ventricular pressures were obtained. The patient tolerated the procedure well. HEMODYNAMICS: Left ventricular diastolic pressure was 12 to 16 mmHg prior to angiography. No gradient noted across the aortic valve. SELECTIVE CORONARY ANGIOGRAPHY: LEFT MAIN: The left main coronary artery is normal and patent. LEFT ANTERIOR DESCENDING ARTERY: LAD is a good caliber blood vessel. Gives rise to an average sized diagonal branch. This diagonal branch has 80% stenosis. Beyond that, the diagonal branch is a small caliber blood vessel. CIRCUMFLEX CORONARY ARTERY: The circumflex coronary artery is a good caliber blood vessel and after the origin of the first obtuse marginal branch, the distal circumflex coronary artery continues as a PLV branch and that PLV branch has about 80% hazy looking stenosis. RIGHT CORONARY ARTERY: Right coronary artery is a good caliber blood vessel and mid right coronary artery has 99% stenosis. The PDA branch is a small caliber blood vessel and distal PDA branch has 70% stenosis. FINAL IMPRESSION: This patient has 99% stenosis in the mid right coronary artery. The distal PDA branch has 70% stenosis. The PLV branch of the circumflex has 80% stenosis. The diagonal branch is relatively has 80% stenosis. Beyond the stenosis, the diagonal branch is a small caliber blood vessel. RECOMMENDATIONS: We will review the films with Dr. Arreola. At present, we will consider a stent to the RCA and subsequently we may consider stent to the PLV branch of the circumflex coronary artery. FAROOQ
== END 2016-09-30 14:52 | disposition home or self-care (01) | DRG 247 ==
LOC: EC 22:28 → 3OBS 09-28 01:11 → 6SEL 09-28 12:40 → OBSVTOIN 09-28 16:01
PROVIDERS: ADMIT Internal Medicine; ATTEND Internal Medicine
PROC: B211YZZ Fluoroscopy of Multiple Coronary Arteries using Other Contrast (ICD-10-PCS; 2016-09-29)
PROC: 027034Z Dilation of Coronary Artery, One Artery with Drug-eluting Intraluminal Device, Percutaneous Approach (ICD-10-PCS; principal; 2016-09-29 10:50)
PROC: 4A023N7 Measurement of Cardiac Sampling and Pressure, Left Heart, Percutaneous Approach (ICD-10-PCS; 2016-09-29 10:50)
DX: I21.4 Non-ST elevation (NSTEMI) myocardial infarction (principal); E11.22 Type 2 diabetes mellitus with diabetic chronic kidney disease; N18.3 Chronic kidney disease, stage 3 (moderate); D64.9 Anemia, unspecified; I25.10 Atherosclerotic heart disease of native coronary artery without angina pectoris; I12.9 Hypertensive chronic kidney disease with stage 1 through stage 4 chronic kidney disease, or unspecified chronic kidney disease; E78.5 Hyperlipidemia, unspecified; H35.30 Unspecified macular degeneration; H54.8 Legal blindness, as defined in USA; H91.90 Unspecified hearing loss, unspecified ear; M19.90 Unspecified osteoarthritis, unspecified site; Z79.82 Long term (current) use of aspirin; Z79.84 Long term (current) use of oral hypoglycemic drugs; Z79.899 Other long term (current) drug therapy; Z87.891 Personal history of nicotine dependence; Z88.5 Allergy status to narcotic agent; Z82.49 Family history of ischemic heart disease and other diseases of the circulatory system
CPT/HCPCS: 36415; 71020; 80048; 80053; 80061; 82550; 82553; 83036; 83735; 83880; 84484; 85025; 85049; 85347; 85379; 85610; 85730; 93005; 93306; 93458; 96374; 99291

== ENCOUNTER 2018-11-17 16:53 | Observation (INO) | payer MEDICARE ==
--- NOTE | 2018-11-17 17:31 | ED ---
General Adult HPI - General Chief complaint: Fall Stated complaint: Femur Fracture Time Seen by Provider: 11/17/18 16:56 Source: patient, EMS, RN notes reviewed Mode of arrival: EMS Limitations: no limitations - History of Present Illness Initial comments: 78-year-old male with a past medical history of legal blindness presents to the emergency department for a chief complaint of left humeral fracture and nasal fracture. Patient was previously seen at [facility] after he was out with his son shopping for toth for his wedding. He missed a step and fell onto the ground injuring his nose and left femur. He was transferred here from [facility] as he did not feel he could care for himself at home given his legal blindness and inability to use the left arm. - Related Data Previous Rx's Medication Instructions Recorded Aspirin 81 mg PO DAILY #30 09/30/16 Atorvastatin [Lipitor] 80 mg PO DAILY #30 tab 09/30/16 Clopidogrel [Plavix] 75 mg PO DAILY #30 tablet 09/30/16 Lisinopril [Zestril] 10 mg PO DAILY #30 tab 09/30/16 Metoprolol Tartrate [Lopressor] 25 mg PO BID #60 tab 09/30/16 Ticagrelor [Brilinta] 90 mg PO BID tab 09/30/16 Allergies Allergy/AdvReac Type Severity Reaction Status Date / Time morphine AdvReac Increased Verified 09/28/16 02:17 Blood Pressure Review of Systems ROS Statement: Those systems with pertinent positive or pertinent negative responses have been documented in the HPI. ROS Other: All systems not noted in ROS Statement are negative. Past Medical History Past Medical History: Diabetes Mellitus, Hearing Disorder / Deafness, Hyperlipidemia, Hypertension Additional Past Medical History / Comment(s): Arthritis History of Any Multi-Drug Resistant Organisms: None Reported Past Surgical History: Orthopedic Surgery Additional Past Surgical History / Comment(s): 10 knee surgeries, both rotator cuffs and left foot surgery Past Anesthesia/Blood Transfusion Reactions: No Reported Reaction Past Psychological History: No Psychological Hx Reported Smoking Status: Former smoker Past Drug Use History: None Reported - Past Family History Father Family Medical History: Cancer, Myocardial Infarction ([place]) Mother Family Medical History: Myocardial Infarction ([place]) Sister(s) Family Medical History: Cancer Daughter(s) Family Medical History: No Reported History Son(s) Family Medical History: No Reported History General Exam Limitations: no limitations General appearance: alert, in no apparent distress Head exam: Present: atraumatic, normocephalic, normal inspection Eye exam: Present: normal appearance ( legally blind, tracking abnormally.), PERRL, EOMI. Absent: scleral icterus, conjunctival injection, periorbital swelling ENT exam: Present: normal exam, normal oropharynx, mucous membranes moist, TM's normal bilaterally, normal external ear exam, other (There is an abrasion noted to the bridge of the nose, no septal hematoma noted.) Neck exam: Present: normal inspection, full ROM. Absent: tenderness, meningismus, lymphadenopathy Respiratory exam: Present: normal lung sounds bilaterally. Absent: respiratory distress, wheezes, rales, rhonchi, stridor Cardiovascular Exam: Present: regular rate, normal rhythm, normal heart sounds. Absent: systolic murmur, diastolic murmur, rubs, gallop, clicks Extremities exam: Present: other (Patient's left arm has a long arm posterior splint in place. Sling in place as well. Capillary refill less than 2 seconds in the left hand. Sensation and motor activity intact in L hand) Neurological exam: Present: alert, oriented X3 Psychiatric exam: Present: normal affect, normal mood Course Vital Signs 11/17/18 17:02 Temperature 97.9 F Pulse Rate 75 Respiratory 16 Rate Blood Pressure 111/86 O2 Sat by Pulse 96 Oximetry Medical Decision Making - Medical Decision Making 78-year-old male with a past medical history of legal blindness presents to the emergency department for a chief complaint of left humerus fracture and nasal fracture. Patient was transferred from [place] as he did not feel he could care for himself due to his legal blindness and inability to use left arm. Imaging from [facility] was reviewed. There is an acute fracture of the left humerus that is mildly comminuted, obliquely oriented, and laterally displaced in the proximal to mid left humeral diaphysis. CT cervical spine showed no fracture. CT head showed no acute intracranial abnormality. CT facial showed an acute nasal bone fracture. Chest x-ray showed no evidence of acute cardiopulmonary process. X-ray of the left and right knee showed no acute fracture. CBC shows a white count of 11.72, hemoglobin of 12.9. CMP shows a BUN of 27, creatinine of 1.5, GFR of 44, glucose of 170. Dr Upton spoke with Dr. Graves, does accept this admission. She will be admitted with pain control. Nothing by mouth at midnight. Disposition Clinical Impression: Fracture closed, humerus, shaft Disposition: ADMITTED IP TO THIS HOSP Condition: Good Is patient prescribed a controlled substance at d/c from ED?: No Referrals: Yuriy Carrero MD [Primary Care Provider] - 1-2 days Time of Disposition: 18:05
[2018-11-17] MEDS ORDERED: NALOXONE 0.4 MG/ML 1 ML VIAL IV PRN (18:03)
[2018-11-17] MEDS ORDERED: ONDANSETRON 4 MG/2 ML VIAL IVP PRN (18:03)
[2018-11-17] MEDS ORDERED: HYDROcodone/APAP 5-325MG 1 EACH TAB PO PRN (20:33)
[2018-11-17] MEDS ORDERED: DEXTROSE 50% SYRINGE 50 ML IVP PRN (20:37)
[2018-11-17] MEDS ORDERED: DEXTROSE 10 % IN WATER 250 ML IV PRN (20:45)
[2018-11-17] MEDS ORDERED: INSULIN DETEMIR (LEVEMIR) 100 UNIT/ML SYR SQ SCH (21:00)
[2018-11-17 21:19] LABS: Glucose,Whole Blood 176 mg/dL (75-99)
[2018-11-17] MEDS: MELOXICAM 7.5 MG TAB PO SCH (21:25)
[2018-11-17] MEDS: SODIUM CHLORIDE 0.9% 1,000 ML IV SCH (21:25)
[2018-11-17] MEDS: ATORVASTATIN 80 MG TAB PO SCH (21:25)
[2018-11-17] MEDS: METOPROLOL TARTRATE 25 MG TAB PO SCH (21:25)
[2018-11-17] MEDS: HYDROmorphone 0.5 MG/0.5 ML SYRINGE IVP PRN (21:43)
[2018-11-18] MEDS: HYDROmorphone 0.5 MG/0.5 ML SYRINGE IVP PRN ×2 (02:17→12:56)
[2018-11-18 08:00] LABS: Glucose,Whole Blood 198 mg/dL (75-99)
[2018-11-18] MEDS: LISINOPRIL 10 MG TAB PO SCH (08:28)
[2018-11-18] MEDS: METOPROLOL TARTRATE 25 MG TAB PO SCH ×2 (08:28→21:02)
[2018-11-18] MEDS: INSULIN ASPART (NovoLOG) 100 UNIT/ML VIAL SQ SCH ×4 (08:28→21:01)
[2018-11-18] MEDS: CLOPIDOGREL 75 MG TAB PO SCH (08:29)
[2018-11-18] MEDS: ASPIRIN 81 MG PO SCH (08:29)
[2018-11-18] MEDS: MELOXICAM 7.5 MG TAB PO SCH ×2 (08:30→21:01)
[2018-11-18] MEDS: SODIUM CHLORIDE 0.9% 1,000 ML IV SCH ×2 (08:30→21:01)
--- NOTE | 2018-11-18 09:05 | P.HPOR ---
<Ruth Ann Montoya - Last Filed: 11/18/18 10:09> History of Present Illness H&P Date: 11/18/18 Chief Complaint: Left humerus fracture The patient is a 78-year-old male with a medical history of diabetes, CVA, hyperlipidemia, hypertension, blindness, hard of hearing, who presented to the emergency department after sustaining a fall. He states he missed a step and fell onto the ground onto his left arm and face. He was seen the hospital and [place] x-rays were taken and he was found to have a humerus fracture. He was transferred to [facility] for further evaluation and care by orthopedic surgery. A head CT was also performed that confirmed a nasal fracture. No cervical fracture or intracranial bleed was found. No other injuries were noted. The patient is unable to care for himself at home and he was admitted for pain control and discharge planning. Today, the patient states that his pain is uncontrolled and he feels nauseated. The arm is uncomfortable in the current splint and he is unable to ambulate due to the arm pain. He is currently only taking Dilaudid for pain. The patient denies numbness and tingling in his hand. Review of Systems Left upper arm pain and swelling. Constitutional: Denies chills, Denies fatigue, Denies fever Cardiovascular: Denies chest pain, Denies shortness of breath Respiratory: Denies cough Gastrointestinal: Denies diarrhea, Denies nausea, Denies vomiting Past Medical History Past Medical History: CVA/TIA, Diabetes Mellitus, Hearing Disorder / Deafness, H yperlipidemia, Hypertension Additional Past Medical History / Comment(s): Arthritis History of Any Multi-Drug Resistant Organisms: None Reported Past Surgical History: Orthopedic Surgery Additional Past Surgical History / Comment(s): 10 knee surgeries, both rotator cuffs and left foot surgery Past Anesthesia/Blood Transfusion Reactions: No Reported Reaction Past Psychological History: No Psychological Hx Reported Smoking Status: Former smoker Past Alcohol Use History: Occasional Past Drug Use History: None Reported - Past Family History Father Family Medical History: Cancer, Myocardial Infarction ([place]) Mother Family Medical History: Myocardial Infarction ([place]) Sister(s) Family Medical History: Cancer Daughter(s) Family Medical History: No Reported History Son(s) Family Medical History: No Reported History Medications and Allergies Home Medications Medication Instructions Recorded Confirmed Type Aspirin 81 mg PO DAILY #30 09/30/16 11/17/18 Rx Clopidogrel [Plavix] 75 mg PO DAILY #30 tablet 09/30/16 11/17/18 Rx Lisinopril [Zestril] 10 mg PO DAILY #30 tab 09/30/16 11/17/18 Rx Metoprolol Tartrate [Lopressor] 25 mg PO BID #60 tab 09/30/16 11/17/18 Rx Atorvastatin [Lipitor] 80 mg PO HS 11/17/18 11/17/18 History Insulin Detemir [Levemir Flextouch] 70 unit SQ HS 11/17/18 11/17/18 History Meloxicam [Mobic] 7.5 mg PO BID 11/17/18 11/17/18 History Allergies Allergy/AdvReac Type Severity Reaction Status Date / Time morphine AdvReac Increased Verified 11/17/18 18:21 Blood Pressure Physical Examination The patient is a pleasant 78-year-old male who is in no acute distress. He is alert and oriented 3. There are abrasions to his nose and chin. No signs of infection. Exam of the left upper extremity reveals a posterior splint with the elbow near full extension. The top of the splint is at the level of the humerus fracture. There is swelling to the left upper arm. He has full range of motion of his fingers without difficulty. Neurological status is intact. The hand is warm and well perfused, radial pulse is strong. Results Outside x-rays of the left humerus reveal an oblique midshaft humerus fracture with displacement. - Labs Labs: Abnormal Lab Results - Last 24 Hours (Table) 11/17/18 11/18/18 Range/Units 21:08 07:49 POC Glucose (mg/dL) 176 H 198 H (75-99) mg/dL Assessment and Plan (1) Fall Current Visit: Yes Status: Acute Code(s): W19.XXXA - UNSPECIFIED FALL, INITIAL ENCOUNTER SNOMED Code(s): 7753188 (2) Legal blindness Current Visit: Yes Status: Acute Code(s): H54.8 - LEGAL BLINDNESS, DEFINED IN [place] SNOMED Code(s): 36000100 (3) Diabetes mellitus Current Visit: Yes Status: Acute Code(s): E11.9 - TYPE 2 DIABETES MELLITUS WITHOUT COMPLICATIONS SNOMED Code(s): 27654500 (4) Hyperlipidemia Current Visit: Yes Status: Acute Code(s): E78.5 - HYPERLIPIDEMIA, UNSPECIFIED SNOMED Code(s): 98264562 (5) Hypertension Current Visit: Yes Status: Acute Code(s): I10 - ESSENTIAL (PRIMARY) HYPERTENSION SNOMED Code(s): 25038492 (6) Fracture closed, humerus, shaft Current Visit: Yes Status: Acute Code(s): S42.309A - UNSP FRACTURE OF SHAFT OF HUMERUS, UNSP ARM, INIT SNOMED Code(s): 61621690 Plan: The clinical and x-ray findings were discussed with the patient. No family is at the bedside at this time. No surgical intervention is planned. The case was also discussed with Dr. Graves. The patient's current splint will be changed later today when the patient is more comfortable. Zofran is ordered for her nausea. Continue pain control with Dilaudid and [place]. Case management has been consulted for home needs and discharge planning. We will consult physical and occupational therapy as well. Internal medicine will be consulted and admission will be possibly changed to medicine if the patient remains in the hospital. The patient will follow up in our office next week for transition into a Renee brace. <Gigi Graves - Last Filed: 11/18/18 15:51> Results - Labs Labs: Abnormal Lab Results - Last 24 Hours (Table) 11/17/18 11/18/18 11/18/18 Range/Units 21:08 07:49 12:12 POC Glucose (mg/dL) 176 H 198 H 177 H (75-99) mg/dL Assessment and Plan Plan: Discussed with VIOLA Montoya and agree with above. Patient was subsequently seen and examined by myself as well. S: The patient experienced a mechanical fall, stumbling off a curb and landing on his left side. He states the splint is particularly uncomfortable and the pain medication is not adequately controlling the symptoms. The pain is primarily in the left arm with various mild bumps, bruises and scrapes across the body. Past medical history is significant for insulin-dependent diabetes and he states that it is not that well controlled. His most recent A1c was around 8 and morning blood sugars frequently range between 180 and 200. He has a cane that he uses occasionally but states that, most times, he does not ambulate with any assistive devices. O: The posterior splint was constrictive and ended at the level of the fracture. This was removed. There is no visible wounds. There is no gross visible or palpable bony deformity. Intact light touch sensation throughout the upper extremity including the terminal distributions of the axillary, radial, median and ulnar nerves. Intact active digital and wrist extension. Imaging: X-rays of the left humerus were reviewed and interpreted from an orthopedic standpoint. These demonstrate a short spiral fracture of the humeral shaft at the level of the proximal and middle thirds. There is a nondisplaced fracture line extending up the proximal fragment to the level of the metaphysis. A: 1. Displaced spiral fracture of the left humeral shaft 2. Insulin-dependent diabetes mellitus-poorly controlled P: I discussed the clinical and radiographic findings detail with Mr. Lozada and his family. Discussed pros and cons of both surgical and nonsurgical treatment. Recommended nonoperative treatment. Patient was in agreement with this plan. He was placed in a long arm posterior sugar tong splint. He states the fracture felt much more stabilized and the pain decreased once it was applied. We will continue PRN pain management. Recommend using IV pain medications as a last resort given the patient's nausea. Once he is able to tolerate oral intake, recommend starting [place]. He may also take Valium for muscle relaxation and adjunctive pain relief. Once home care needs have been addressed, the patient may be discharged all to follow up with me in the office in 7-10 days. Gigi Graves D.O. [facility] Time with Patient: Greater than 30
[2018-11-18] MEDS ORDERED: HYDROmorphone 1 MG/ML 1 ML SYRINGE IVP PRN (09:29)
[2018-11-18 12:24] LABS: Glucose,Whole Blood 177 mg/dL (75-99)
[2018-11-18] MEDS: PANTOPRAZOLE 40 MG/10 ML VIAL IVP SCH (12:57)
[2018-11-18] MEDS ORDERED: DIAZEPAM 5 MG/ML 2 ML INJ IVP STA (14:28)
[2018-11-18] MEDS ORDERED: DIAZEPAM 5 MG TAB PO PRN (16:00)
--- NOTE | 2018-11-18 16:14 | P.CONS ---
History of Present Illness - Reason for Consult Type 2 diabetes mellitus management of insulin - History of Present Illness Pleasant 70-year-old gentleman was admitted after a mechanical fall and a left humerus fracture. Patient presently has a bandage in the diarrhea. I do not have any labs available patient is diabetic is on high-dose of insulin that he 70 units of Lantus at night. Patient is not eating eating well and is bit nauseous secondary to stress also sent has stress-related gastritis patient will be started on Protonix for that patient is getting Zofran at this time we'll cut down the dose of insulin at nighttime with concerns of hypoglycemia will continue with sliding scale insulin. Review of Systems REVIEW OF SYSTEMS: CONSTITUTIONAL: No fever, no malaise, no fatigue. HEENT: No recent visual problems or hearing problems. Denied any sore throat. CARDIOVASCULAR: No chest pain, orthopnea, PND, no palpitations, no syncope. PULMONARY: No shortness of breath, no cough, no hemoptysis. GASTROINTESTINAL: No diarrhea, no nausea, no vomiting, no abdominal pain. NEUROLOGICAL: No headaches, no weakness, no numbness. HEMATOLOGICAL: Denies any bleeding or petechiae. GENITOURINARY: Denies any burning micturition, frequency, or urgency. MUSCULOSKELETAL/RHEUMATOLOGICAL: Denies any joint pain, swelling, or any muscle pain. ENDOCRINE: Denies any polyuria or polydipsia. The rest of the 14-point review of systems is negative. Past Medical History Past Medical History: CVA/TIA, Diabetes Mellitus, Hearing Disorder / Deafness, Hyperlipidemia, Hypertension Additional Past Medical History / Comment(s): Arthritis History of Any Multi-Drug Resistant Organisms: None Reported Past Surgical History: Orthopedic Surgery Additional Past Surgical History / Comment(s): 10 knee surgeries, both rotator cuffs and left foot surgery Past Anesthesia/Blood Transfusion Reactions: No Reported Reaction Past Psychological History: No Psychological Hx Reported Smoking Status: Former smoker Past Alcohol Use History: Occasional Past Drug Use History: None Reported - Past Family History Father Family Medical History: Cancer, Myocardial Infarction ([place]) Mother Family Medical History: Myocardial Infarction ([place]) Sister(s) Family Medical History: Cancer Daughter(s) Family Medical History: No Reported History Son(s) Family Medical History: No Reported History Medications and Allergies Home Medications Medication Instructions Recorded Confirmed Type Aspirin 81 mg PO DAILY #30 09/30/16 11/17/18 Rx Clopidogrel [Plavix] 75 mg PO DAILY #30 tablet 09/30/16 11/17/18 Rx Lisinopril [Zestril] 10 mg PO DAILY #30 tab 09/30/16 11/17/18 Rx Metoprolol Tartrate [Lopressor] 25 mg PO BID #60 tab 09/30/16 11/17/18 Rx Atorvastatin [Lipitor] 80 mg PO HS 11/17/18 11/17/18 History Insulin Detemir [Levemir Flextouch] 70 unit SQ HS 11/17/18 11/17/18 History Meloxicam [Mobic] 7.5 mg PO BID 11/17/18 11/17/18 History Allergies Allergy/AdvReac Type Severity Reaction Status Date / Time morphine AdvReac Increased Verified 11/17/18 18:21 Blood Pressure Physical Exam Vitals: Vital Signs Temp Pulse Pulse Resp BP BP Pulse Ox 11/18/18 08:25 74 16 11/18/18 07:00 98.9 F 74 16 151/62 94 L 11/18/18 02:20 99.0 F 87 16 144/75 95 11/17/18 18:55 99.5 F 78 17 137/77 96 11/17/18 18:30 65 16 108/69 96 11/17/18 17:02 97.9 F 75 16 111/86 96 Intake and Output 11/18/18 11/18/18 11/18/18 06:59 14:59 22:59 Intake Total 750 Balance 750 Intake: Intake, IV Titration 750 Amount Sodium Chloride 0.9% 1, 750 000 ml @ 75 mls/hr IV . [id number] [facility] Rx#:[id number] Other: Voiding Method Urinal # Voids 1 PHYSICAL EXAMINATION: GENERAL: The patient is alert and oriented x3, not in any acute distress. Well developed, well nourished. HEENT: Pupils are round and equally reacting to light. EOMI. No scleral icterus. No conjunctival pallor. Normocephalic, atraumatic. No pharyngeal erythema. No thyromegaly. CARDIOVASCULAR: S1 and S2 present. No murmurs, rubs, or gallops. PULMONARY: Chest is clear to auscultation, no wheezing or crackles. ABDOMEN: Soft, nontender, nondistended, normoactive bowel sounds. No palpable organomegaly. MUSCULOSKELETAL: No joint swelling or deformity. EXTREMITIES: No cyanosis, clubbing, or pedal edema. Sandeep bandage to the left upper extremity NEUROLOGICAL: Gross neurological examination did not reveal any focal deficits. SKIN: No rashes. Results Labs: Abnormal Lab Results - Last 24 Hours (Table) 11/17/18 11/18/18 11/18/18 Range/Units 21:08 07:49 12:12 POC Glucose (mg/dL) 176 H 198 H 177 H (75-99) mg/dL Assessment and Plan Plan: -The left humerus fracture: Management as per primary service. -Type 2 diabetes mellitus: With concerns of hypoglycemia as patient is not eating well and cutting down the dose of long-acting insulin and use sliding scale. Nausea, vomiting: Secondary to stress related to gastritis and ulcerations: Patient will be started on Protonix and the continue with as needed Zofran -Hyperlipidemia -Hypertension -CVA TIA in the past
[2018-11-18 19:15] LABS: Glucose,Whole Blood 215 mg/dL (75-99)
[2018-11-18 20:48] LABS: Glucose,Whole Blood 197 mg/dL (75-99)
[2018-11-18] MEDS ORDERED: INSULIN DETEMIR (LEVEMIR) 100 UNIT/ML SYR SQ SCH ×2 (21:00)
[2018-11-18] MEDS: ATORVASTATIN 80 MG TAB PO SCH (21:01)
[2018-11-19 06:51] LABS: Glucose,Whole Blood 131 mg/dL (75-99)
[2018-11-19 07:13] LABS: HCT 35.2 % (39.0-53.0); HGB 11.3 gm/dL (13.0-17.5); MCH 31.8 pg (25.0-35.0); MCHC 32.1 g/dL (31.0-37.0); MCV 99.1 fL (80.0-100.0); Platelet Count 225 k/uL (150-450); RBC 3.55 m/uL (4.30-5.90); RDW 13.7 % (11.5-15.5); WBC 13.1 k/uL (3.8-10.6)
[2018-11-19 07:23] LABS: Calcium 8.7 mg/dL (8.4-10.2); Potassium 4.6 mmol/L (3.5-5.1)
--- NOTE | 2018-11-19 07:58 | XR ---
EXAMINATION TYPE: XR humerus LT , 2 VIEWS DATE OF EXAM ORDERED: 11/19/2018 HISTORY: Assess fracture alignment after splint application. COMPARISON: Guest study dated 11/17/2018. FINDINGS: There is a moderately displaced spiral fracture of the proximal diaphysis of the left lisbet damion. This is displaced by the width of the humeral shaft. There is mild foreshortening. Alignment is reasonably well-maintained. IMPRESSION: MODERATELY DISPLACED SPIRAL FRACTURE THE PROXIMAL DIAPHYSIS OF THE LEFT HUMERUS. CODE D: SUBSEQUENT ENCOUNTER WITH ROUTINE HEALING
[2018-11-19] MEDS: MELOXICAM 7.5 MG TAB PO SCH (08:21)
[2018-11-19] MEDS: ASPIRIN 81 MG PO SCH (08:21)
[2018-11-19] MEDS: METOPROLOL TARTRATE 25 MG TAB PO SCH (08:21)
[2018-11-19] MEDS: CLOPIDOGREL 75 MG TAB PO SCH (08:21)
[2018-11-19] MEDS: LISINOPRIL 10 MG TAB PO SCH (08:21)
[2018-11-19] MEDS: INSULIN ASPART (NovoLOG) 100 UNIT/ML VIAL SQ SCH (08:22)
[2018-11-19] MEDS: PANTOPRAZOLE 40 MG/10 ML VIAL IVP SCH (08:22)
--- NOTE | 2018-11-19 10:25 | P.DS ---
Providers Date of admission: 11/17/18 18:22 Expected date of discharge: 11/19/18 Attending physician: Gigi Graves DO Consults: 11/18/18 09:14 Consult Physician Routine Consulting Provider: Gasper Carlin Consult Reason/Comments: medical management Do you want consulting provider notified?: Yes Primary care physician: Yuriy Carrero - Discharge Diagnosis(es) (1) Fracture closed, humerus, shaft Patient was admitted through the ED on 11/17/2018 after a fall resulted in a displaced mid shaft humerus fracture. A new splint was placed as well as pain management was established during his course. Hospital course has remained without complication. On day of discharge she is afebrile, vital signs stable, labs within acceptable ranges, tolerating by mouth meds and diet, voiding without difficulty, positive flatus, denies abdominal pain or calf pain, pain is controlled on oral pain medication and has no new complaints. Neurovascular status is intact, calf is soft and nontender, abdomen soft and nontender. Review of systems is negative for numbness, tingling, fever, chills, chest pain, shortness of breath, nausea, vomiting, dizziness, headaches, slurred speech or other. Current Visit: Yes Status: Acute Priority: Medium Patient Condition at Discharge: Good Plan - Discharge Summary Discharge Rx Participant: Yes New Discharge Prescriptions: New HYDROcodone/APAP 5-325MG [[place] 5-325] 1 tab PO Q4HR PRN #42 tab PRN Reason: Pain No Action Aspirin 81 mg PO DAILY #30 Metoprolol Tartrate [Lopressor] 25 mg PO BID #60 tab Lisinopril [Zestril] 10 mg PO DAILY #30 tab Clopidogrel [Plavix] 75 mg PO DAILY #30 tablet Meloxicam [Mobic] 7.5 mg PO BID Insulin Detemir [Levemir Flextouch] 70 unit SQ HS Atorvastatin [Lipitor] 80 mg PO HS Discharge Medication List Aspirin 81 mg PO DAILY #30 09/30/16 [Rx] Clopidogrel [Plavix] 75 mg PO DAILY #30 tablet 09/30/16 [Rx] Lisinopril [Zestril] 10 mg PO DAILY #30 tab 09/30/16 [Rx] Metoprolol Tartrate [Lopressor] 25 mg PO BID #60 tab 09/30/16 [Rx] Atorvastatin [Lipitor] 80 mg PO HS 11/17/18 [History] Insulin Detemir [Levemir Flextouch] 70 unit SQ HS 11/17/18 [History] Meloxicam [Mobic] 7.5 mg PO BID 11/17/18 [History] HYDROcodone/APAP 5-325MG [[place] 5-325] 1 tab PO Q4HR PRN #42 tab 11/19/18 [Rx] Follow up Appointment(s)/Referral(s): Yuriy Carrero MD [Primary Care Provider] - 1-2 days Gigi Graves DO [Medical Doctor] - 10 Days Gerardo Loera [NON-STAFF] - As Needed (brace ) Activity/Diet/Wound Care/Special Instructions: Orthopedic Postoperative Discharge Instructions Apply ice as needed to the left arm to decrease pain and swelling. Use pain medication as directed. Ok to use hand for light activities (eating/dressing/etc). No active shoulder motion. Do not lean on the elbow or prop pillows under it. Keep the splint/dressing dry. Sling is only to be used during transportation home and should not be worn at other times. Perform finger [id number] exercises several times daily. No squeeze balls. Call as soon as possible to schedule a follow-up appointment with Dr. Graves to be seen in approximately 10 days. The patient is to obtain the fracture brace in advance (rx provided) and bring it with him to his follow-up appointment. Call the office with any questions or concerns in the interim
[2018-11-19 10:26] VITALS: BP 124/71; PULSE 72; RESP 16; TEMP 97.9
[2018-11-19] MEDS: SODIUM CHLORIDE 0.9% 1,000 ML IV SCH (10:42)
--- NOTE | 2018-11-19 12:31 | P.PN ---
Subjective patient is feeling much better blood sugars are rolled and the other with surgeries not recommending any surgical intervention is being discharged today patient is medically stable to be discharged. Patient insulin regimen will remain the same no changes in his medications are being made to discharge medications were reviewed Constitutional: Denied any fatigue denied any fever. Cardio vascular: denied any chest pain, palpitations Gastrointestinal denied any nausea vomiting Pulmonary: Denied any shortness of breath cough Neurologic denied any new focal deficits All inpatient medications were reviewed and appropriate changes in these medica tions as dictated in the interval history and assessment and plan. Objective - Vital Signs Vital signs: Vital Signs Temp 97.9 F 11/19/18 08:21 Pulse 72 11/19/18 08:21 Resp 16 11/19/18 08:21 BP 124/71 11/19/18 08:21 Pulse Ox 96 11/19/18 08:21 Intake & Output 11/18/18 11/19/18 11/19/18 18:59 06:59 18:59 Intake Total 950 825 Balance 950 825 Intake: Intake, IV Titration 600 825 Amount Sodium Chloride 0.9% 1, 600 825 000 ml @ 75 mls/hr IV . [id number] [facility] Rx#:[id number] Oral 350 Other: Voiding Method Urinal # Voids 3 - Exam PHYSICAL EXAMINATION: GENERAL: The patient is alert and oriented x3, not in any acute distress. Well developed, well nourished. HEENT: Pupils are round and equally reacting to light. EOMI. No scleral icterus. No conjunctival pallor. Normocephalic, atraumatic. No pharyngeal erythema. No thyromegaly. CARDIOVASCULAR: S1 and S2 present. No murmurs, rubs, or gallops. PULMONARY: Chest is clear to auscultation, no wheezing or crackles. ABDOMEN: Soft, nontender, nondistended, normoactive bowel sounds. No palpable organomegaly. MUSCULOSKELETAL: No joint swelling or deformity. EXTREMITIES: No cyanosis, clubbing, or pedal edema. Sandeep bandage to the left upper extremity NEUROLOGICAL: Gross neurological examination did not reveal any focal deficits. SKIN: No rashes. - Labs CBC & Chem 7: 11/19/18 06:56 11/19/18 06:56 Labs: Abnormal Lab Results - Last 24 Hours (Table) 11/18/18 11/18/18 11/19/18 Range/Units 19:04 20:37 06:49 WBC (3.8-10.6) k/uL RBC (4.30-5.90) m/uL Hgb (13.0-17.5) gm/dL Hct (39.0-53.0) % BUN (9-20) mg/dL Glucose (74-99) mg/dL POC Glucose (mg/dL) 215 H 197 H 131 H (75-99) mg/dL 11/19/18 11/19/18 Range/Units 06:56 06:56 WBC 13.1 H (3.8-10.6) k/uL RBC 3.55 L (4.30-5.90) m/uL Hgb 11.3 L (13.0-17.5) gm/dL Hct 35.2 L (39.0-53.0) % BUN 22 H (9-20) mg/dL Glucose 131 H (74-99) mg/dL POC Glucose (mg/dL) (75-99) mg/dL Assessment and Plan Plan: -The left humerus fracture: Management as per primary service. -Type 2 diabetes mellitus: patient will resume his home regimen Nausea, vomiting: Secondary to stress related to gastritis and ulcerations:resolved now -Hyperlipidemia -Hypertension -CVA TIA in the past
== END 2018-11-19 11:59 | disposition home or self-care (01) ==
LOC: EC 16:53 → 4SSUR 18:22
PROVIDERS: ADMIT Orthopaedic Surgery; ATTEND Orthopaedic Surgery
DX: S42.342A Displaced spiral fracture of shaft of humerus, left arm, initial encounter for closed fracture (principal); S02.2XXA Fracture of nasal bones, initial encounter for closed fracture; K29.60 Other gastritis without bleeding; E11.9 Type 2 diabetes mellitus without complications; I10 Essential (primary) hypertension; E78.5 Hyperlipidemia, unspecified; H54.8 Legal blindness, as defined in USA; H91.90 Unspecified hearing loss, unspecified ear; W10.9XXA Fall (on) (from) unspecified stairs and steps, initial encounter; Z79.02 Long term (current) use of antithrombotics/antiplatelets; Z79.1 Long term (current) use of non-steroidal anti-inflammatories (NSAID); Z79.4 Long term (current) use of insulin; Z79.82 Long term (current) use of aspirin; Z79.899 Other long term (current) drug therapy; Z87.891 Personal history of nicotine dependence; Z86.73 Personal history of transient ischemic attack (TIA), and cerebral infarction without residual deficits; Z82.49 Family history of ischemic heart disease and other diseases of the circulatory system
CPT/HCPCS: 96376 ×2; 96361 ×2; 96374; 96375; 99285; 97162; 80048; 85027; 73060; G0378 ×3; J3360; J2405; C9113 ×2; J1170 ×2

== ENCOUNTER → 2019-01-05 | Outpatient (CLI) | payer MEDICARE | END | disposition home or self-care (01) | LOC: LABWHC1 14:49 | PROVIDERS: ATTEND Orthopaedic Surgery | DX: E55.9 Vitamin D deficiency, unspecified (principal); S42.342D Displaced spiral fracture of shaft of humerus, left arm, subsequent encounter for fracture with routine healing; M79.622 Pain in left upper arm; L03.113 Cellulitis of right upper limb; T81.49XA Infection following a procedure, other surgical site, initial encounter | CPT/HCPCS: 36415; 82306 ==

== ENCOUNTER 2019-01-27 13:45 | Observation (INO) | payer MEDICARE, OTHER ==
[2019-01-25 09:06] VITALS: BMI 27.2
[~2019-01-27 13:45] MED LIST: DEXAMETHASONE SOD PHOSPHATE 10 MG/ML 1 ML VIAL IV ONE; LIDOCAINE 1% 20 ML VIAL (10MG/ML) FOR IV START INTRADERMA PRN; MIDAZOLAM 2 MG/2 ML VIAL IV PRN; ONDANSETRON 4 MG/2 ML VIAL IVP ONE; SCOPOLAMINE 1.5MG/72HR PATCH TRANSDERM ONE
[2019-01-27] MEDS: LACTATED RINGERS 1,000 ML IV SCH (14:08)
[2019-01-27 14:14] LABS: Glucose,Whole Blood 117 mg/dL (75-99)
[2019-01-27] MEDS ORDERED: HYDROcodone/APAP 5-325MG 1 EACH TAB PO PRN (16:54)
[2019-01-27] MEDS ORDERED: ONDANSETRON 4 MG/2 ML VIAL IVP PRN (16:54)
[2019-01-27] MEDS ORDERED: HYDROmorphone 1 MG/ML 1 ML SYRINGE IVP PRN (16:54)
[2019-01-27] MEDS ORDERED: PROPOFOL 10 MG/ML 20 ML VIAL IV ONE (16:59)
[2019-01-27] MEDS ORDERED: ROCURONIUM BROMIDE 10 MG/ML 10 ML VIAL IV ONE (16:59)
[2019-01-27] MEDS ORDERED: ROPIVACAINE 5 MG/ML 30 ML VIAL ONE (16:59)
[2019-01-27] MEDS ORDERED: PHENYLEPHRINE-0.9% NACL SYG 1 MG/10 ML SYRINGE ONE (16:59)
[2019-01-27] MEDS ORDERED: GLYCOPYRROLATE 0.2 MG/ML 2 ML VIAL ONE (16:59)
[2019-01-27] MEDS ORDERED: SUCCINYLCHOLINE CHLORIDE 100 MG/5 ML SYR IV ONE (16:59)
[2019-01-27] MEDS ORDERED: NEOSTIGMINE 1 MG/ML 10 ML VIAL ONE (16:59)
[2019-01-27] MEDS ORDERED: LIDOCAINE 1% INJ 10MG/ML (20 ML MDV) ONE (16:59)
[2019-01-27] MEDS ORDERED: ONDANSETRON 4 MG/2 ML VIAL ONE (16:59)
[2019-01-27] MEDS ORDERED: fentaNYL (PF) 50 MCG/ML 2 ML AMP ONE (16:59)
[2019-01-27] MEDS ORDERED: LACTATED RINGERS 1,000 ML IV ONE ×3 (18:25→23:48)
[2019-01-27] MEDS ORDERED: LIDOCAINE 0.5%-EPI 1:200,000 50 ML VIAL SQ ONE (20:55)
[2019-01-27 21:26] LABS: HCT 35.5 % (39.0-53.0); HGB 11.6 gm/dL (13.0-17.5); MCH 32.2 pg (25.0-35.0); MCHC 32.8 g/dL (31.0-37.0); MCV 98.1 fL (80.0-100.0); Mean Platelet Volume 6.7; Platelet Count 277 k/uL (150-450); RBC 3.62 m/uL (4.30-5.90); RDW 13.2 % (11.5-15.5)
--- NOTE | 2019-01-27 22:38 | P.ANPRN ---
Procedure Note - Anesthesia - Nerve Block Performed Right Interscalene Single Time Out Performed: Yes Date of Procedure: 01/27/19 Procedure Start Time: Procedure Stop Time: Location of Patient Procedure: PACU Indication: Acute Post-Operative Pain, Requested by Surgeon Sedation Type: Sedate with meaningful contact maintained Preparation: Sterile Prep Position: Supine Needle Types: [place] Needle Gauge: 21 Ultrasound used to visualize needle placement: Yes Ultrasound used to observe medication spread: Yes Resistance on Injection: Normal Image Stored and Saved: Yes Events: Uneventful and Well Tolerated (ropi .5% 30cc)
--- NOTE | 2019-01-27 22:52 | XR ---
EXAMINATION TYPE: XR humerus LT DATE OF EXAM: 01/27/2019 COMPARISON: 11/19/2018 HISTORY: Postop TECHNIQUE: 2 views FINDINGS: There is a plate with screws fixing the spiral fracture of the proximal shaft of the humeru s. Fragments are in anatomic position. There is skin alex. IMPRESSION: Anatomic reduction. No complicating process seen.
[2019-01-27] MEDS: HYDROmorphone 0.5 MG/0.5 ML SYRINGE IVP PRN ×2 (23:04→23:32)
[2019-01-27 23:25] LABS: Glucose,Whole Blood 246 mg/dL (75-99)
[2019-01-27] MEDS: INSULIN ASPART (NovoLOG) 100 UNIT/ML VIAL SQ SCH (23:27)
[2019-01-28] MEDS: INSULIN ASPART (NovoLOG) 100 UNIT/ML VIAL SQ SCH ×6 (00:41→20:50)
[2019-01-28] MEDS: LACTATED RINGERS 1,000 ML IV SCH ×3 (01:16→18:51)
[2019-01-28] MEDS: LISINOPRIL 10 MG TAB PO SCH ×3 (01:17→20:32)
[2019-01-28] MEDS: ATORVASTATIN 80 MG TAB PO SCH ×3 (01:17→20:49)
[2019-01-28] MEDS: INSULIN DETEMIR (LEVEMIR) 100 UNIT/ML SYR SQ SCH ×2 (01:18→20:50)
[2019-01-28 01:41] LABS: Glucose,Whole Blood 249 mg/dL (75-99)
[2019-01-28 07:02] LABS: Glucose,Whole Blood 199 mg/dL (75-99)
[2019-01-28 07:45] LABS: HCT 28.7 % (39.0-53.0); MCHC 33.4 g/dL (31.0-37.0); MCV 98.7 fL (80.0-100.0); Mean Platelet Volume 6.5; Platelet Count 229 k/uL (150-450); RBC 2.91 m/uL (4.30-5.90); RDW 13.2 % (11.5-15.5); WBC 13.4 k/uL (3.8-10.6)
[2019-01-28 07:49] LABS: HGB 9.6 gm/dL (13.0-17.5)
[2019-01-28] MEDS: CLOPIDOGREL 75 MG TAB PO SCH (07:56)
[2019-01-28] MEDS: ASPIRIN 81 MG PO SCH (07:57)
[2019-01-28 08:01] LABS: Calcium 8.2 mg/dL (8.4-10.2); Potassium 5.7 mmol/L (3.5-5.1)
[2019-01-28 12:01] LABS: Glucose,Whole Blood 208 mg/dL (75-99)
[2019-01-28] MEDS: HYDROcodone/APAP 5-325MG 1 EACH TAB PO PRN ×2 (12:09→20:49)
--- NOTE | 2019-01-28 13:10 | P.PN ---
Subjective Progress Note Date: 01/28/19 The patient states that the postoperative pain has been decreasing. He currently rates a 4 out of 10. He denies numbness, tingling or paresthesias. Denies nausea or vomiting. No chest pain, dyspnea or shortness of breath. Objective - Vital Signs Vital signs: Vital Signs Temp 98.3 F 01/28/19 07:00 Pulse 74 01/28/19 08:00 Resp 15 01/28/19 08:00 BP 108/62 01/28/19 07:00 Pulse Ox 99 01/28/19 07:00 Intake & Output 01/27/19 01/28/19 01/28/19 18:59 06:59 18:59 Intake Total 2049 1350 Output Total 1750 Balance 2049 -400 Weight 89.358 kg Intake: IV 2049 900 Intake, IV Titration 450 Amount Lactated Ringers 1,000 ml 450 @ 75 mls/hr IV .[id number] [facility] Rx#:[id number] Output: Urine 1150 Estimated Blood Loss 600 Other: Voiding Method Indwelling Catheter Indwelling Catheter - Exam Left upper extremity: Dressings are clean and dry without shadowing or strikethrough. All compartments are soft and compressible. Intact light touch sensation throughout the arm, including the terminal axillary, radial, median and ulnar nerve distributions. Intact active digital and wrist extension. The hand is warm and well-perfused. - Labs CBC & Chem 7: 01/28/19 07:13 01/28/19 07:13 Labs: Abnormal Lab Results - Last 24 Hours (Table) 01/27/19 01/27/19 01/27/19 Range/Units 14:08 21:08 23:23 WBC 18.0 H (3.8-10.6) k/uL RBC 3.62 L (4.30-5.90) m/uL Hgb 11.6 L (13.0-17.5) gm/dL Hct 35.5 L (39.0-53.0) % Potassium (3.5-5.1) mmol/L Carbon Dioxide (22-30) mmol/L BUN (9-20) mg/dL Creatinine (0.66-1.25) mg/dL Glucose (74-99) mg/dL POC Glucose (mg/dL) 117 H 246 H (75-99) mg/dL Calcium (8.4-10.2) mg/dL 01/28/19 01/28/19 01/28/19 Range/Units 01:15 06:49 07:13 WBC 13.4 H (3.8-10.6) k/uL RBC 2.91 L (4.30-5.90) m/uL Hgb 9.6 L D (13.0-17.5) gm/dL Hct 28.7 L (39.0-53.0) % Potassium (3.5-5.1) mmol/L Carbon Dioxide (22-30) mmol/L BUN (9-20) mg/dL Creatinine (0.66-1.25) mg/dL Glucose (74-99) mg/dL POC Glucose (mg/dL) 249 H 199 H (75-99) mg/dL Calcium (8.4-10.2) mg/dL 01/28/19 01/28/19 Range/Units 07:13 11:46 WBC (3.8-10.6) k/uL RBC (4.30-5.90) m/uL Hgb (13.0-17.5) gm/dL Hct (39.0-53.0) % Potassium 5.7 H (3.5-5.1) mmol/L Carbon Dioxide 21 L (22-30) mmol/L BUN 27 H (9-20) mg/dL Creatinine 1.28 H (0.66-1.25) mg/dL Glucose 186 H (74-99) mg/dL POC Glucose (mg/dL) 208 H (75-99) mg/dL Calcium 8.2 L (8.4-10.2) mg/dL Assessment and Plan Assessment: 1. Postoperative day #1 status post open reduction and internal fixation of left humeral shaft delayed union 2. Acute postop anemia secondary to blood loss and hemodilution 3. Insulin-dependent diabetes mellitus Plan: Mr. Lozada is doing very well. We reviewed the intraoperative findings and expected course of recovery. DC Dilaudid and continue PRN pain management with [place]. OT eval pending. Apply ice to left arm. Continue active range of motion of the elbow, hand and wrist. Plan for DC home this afternoon once pain is controlled on oral medications and he is ambulating independently. Follow-up outpatient in 10-14 days for wound check and repeat x-rays.
--- NOTE | 2019-01-28 13:17 | P.DS ---
Providers Date of admission: 01/28/2019 Expected date of discharge: 01/28/19 Attending physician: Gigi Graves DO Primary care physician: [facility] Course: The patient is a pleasant 78-year-old male who underwent surgical stabilization of a left humeral shaft fracture. He was admitted after surgery for continued monitoring, pain control and trending hemoglobin. A postoperative regional nerve block was performed by the anesthesia department for postoperative pain control. The block was inadvertently applied to the right (nonoperative) upper extremity. Sensation motor function is gradually returning to this extremity. He was seen and evaluated by physical and occupational therapy. His hospital course was otherwise uneventful. At time of discharge, his hemoglobin and vital signs are stable. His pain is well-controlled on oral medications. He is ambulating independently and deemed fit for discharge home. Procedures: Open reduction and internal fixation of left humeral shaft fracture Patient Condition at Discharge: Stable Plan - Discharge Summary Discharge Rx Participant: Yes New Discharge Prescriptions: No Action Aspirin 81 mg PO DAILY #30 Clopidogrel [Plavix] 75 mg PO DAILY #30 tablet Meloxicam [Mobic] 7.5 mg PO BID Insulin Detemir [Levemir Flextouch] 70 unit SQ HS Atorvastatin [Lipitor] 40 mg PO BID Ergocalciferol [Vitamin D2] 50,000 unit PO Q72H Lisinopril [Zestril] 10 mg PO BID Discharge Medication List Aspirin 81 mg PO DAILY #30 09/30/16 [Rx] Clopidogrel [Plavix] 75 mg PO DAILY #30 tablet 09/30/16 [Rx] Atorvastatin [Lipitor] 40 mg PO BID 11/17/18 [History] Insulin Detemir [Levemir Flextouch] 70 unit SQ HS 11/17/18 [History] Meloxicam [Mobic] 7.5 mg PO BID 11/17/18 [History] Ergocalciferol [Vitamin D2] 50,000 unit PO Q72H 01/25/19 [History] Lisinopril [Zestril] 10 mg PO BID 01/25/19 [History] Follow up Appointment(s)/Referral(s): Gigi Graves DO [Medical Doctor] - 2 Weeks Activity/Diet/Wound Care/Special Instructions: Orthopedic Postoperative Discharge Instructions Ice & elevate the arm. Use norco OR kkqt-foq-anpprur pain medication as directed. No strenuous/forceful use of the hand. No lifting/gripping/pushing/pulling. Ok to use hand for light activities (eating/dressing/etc). Perform finger, hand, wrist and elbow yrslp-zf-jznoax exercises several times daily. No squeeze balls. Begin pendulums. No active shoulder motion. No reaching. May stop using the sling at any time. Do not wear it to sleep. Keep the dressing dry. May remove all dressings on 01/30/19. Only need to reapply a dressing if there is any bleeding or drainage. Ok to shower and get incision wet with soap and water. Do not soak incision. No lotions or ointments on incision. Call as soon as possible to schedule a follow-up appointment with Dr. Graves to be seen in approximately 10-14 days. Discharge Disposition: HOME SELF-CARE
--- NOTE | 2019-01-28 13:42 | FL ---
Fluoroscopy INDICATION: Pain FINDINGS: Fluoroscopy time: 1 minute 37 seconds. Images obtained: 7. IMPRESSIONS: 1. Documentation of fluoroscopy.
--- NOTE | 2019-01-28 14:02 | P.OP ---
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 Procedure(s) Performed: Open reduction and internal fixation of displaced left humeral shaft fracture Implants: Synthes periarticular locking proximal humerus plate with locking and cortical screws; 5 cc of demineralized bone matrix Anesthesia: LETICIA local Surgeon: Gigi Graves Office Services Clerk #1: Ruth Ann Montoya Estimated Blood Loss (ml): 600 Pathology: none sent Condition: stable Disposition: PACU Indications for Procedure: The patient is a pleasant 78-year-old [id number] gentleman who sustained a displaced left humeral shaft fracture after a mechanical fall stepping off a curb. He was initially treated with nonsurgical management in a splint, follo wed by a Renee fracture brace. He initially struggled with soft tissue irritation and superficial skin infection from the brace. Subsequent x-rays showed minimal healing in addition to unacceptable displacement and alignment. Treatment options (and associated risks and benefits) were discussed in the office. Surgical treatment was recommended. In preop, the patient denied any additional questions or concerns and wished to proceed with surgery. Consent forms were signed. The operative site was confirmed and marked. Description of Procedure: The patient was brought to the operating suite by the anesthesia team. He was transferred to the operating table and general anesthesia was administered uneventfully. He was placed in the beachchair position and all bony prominences were well-padded. The left upper extremity was then prepped and draped in standard, sterile fashion. A time-out was performed, confirming patient identifiers, the operative side, site and the procedure to be performed: all team members expressed agreement. An extended deltopectoral/anterolateral approach was utilized. Longitudinal incision was marked from the tip of the coracoid along the lateral aspect of the arm. Skin was sharply incised. Full-thickness skin flaps were elevated. Superficial bleeders were coagulated as needed with electrocautery. There was moderate sanguinous drainage from multiple small vessels. The deltopectoral interval was identified and bluntly developed. The cephalic vein was retracted medially, coagulating perforating vessels as needed. The 3 sisters were identified and required cauterization to facilitate exposure. The subdeltoid space was bluntly developed to expose the proximal humerus. Distally, the interval between the biceps and brachialis muscles was identified bluntly developed. There was some chronic-appearing traumatic disruption of the brachialis muscle at the level of the fracture. The brachialis was split at this level to expose the fracture site. The fracture was identified. There was significant displacement of both ends of the bone. Each was densely encased in thick, fibrous tissue. This was sharply mechanically resected with cautery, curettes and rongeurs. Finger dissection was used to free and mobilize the fracture ends. Some nonossified fracture callous was identified at the periphery the fracture and was resected. A curette was used to remove devitalized bone at the fracture edges. Fibrous tissue was resected from the medullary canal. Once mobilized and freed from fibrous tissue and callus, the fracture was manually reduced and held with a reduction clamp. Intraoperative fluoroscopy was used to confirm acceptable alignment. The initial fracture extended up to the proximal metaphysis. A plate was selected to span from the humeral head to beyond the distal fracture site. The axillary nerve was palpated and protected. The plate was inserted at the fracture site and advanced under the deltoid to the proximal humerus. The plate was clamped in place and its position was confirmed on orthogonal imaging. A cortical screw was drilled, measured and inserted to secure the plate to the metaphysis proximally. Attempts to retract the deltoid to gain exposure to permit screw insertion of the proximal locking screws proved difficult. The patient had previous rotator cuff surgery there was some sub-deltoids adhesions. Rather than release the deltoid from its origin or insertion, a small split was developed between the anterior and middle heads. The axillary nerve was palpat ed and protected while creating the exposure. Locking drill sleeves were inserted and proximal locking screws were drilled, measured and inserted. Fracture reduction was adjusted and the distal cortical screws were inserted. The clamps were removed. Final x-rays were obtained which revealed satisfactory implant position and fracture reduction. Passive rotation of the arm and manual stress applied to the fracture site showed no motion at the fracture. The wound was copiously irrigated with normal saline. There was a cortical void on the posterolateral aspect of the fracture site. Demineralized bone matrix was injected and manually packed into this space. The deltoid split and deltopectoral interval were reapproximated and repaired with interrupted 0 Vicryl sutures. The wound was closed layers with 0 Vicryl for the deep and and 3-0 Vicryl for the superficial subcutaneous tissues. The skin was closed with alex. Local anesthetic with epinephrine was injected into the perioperative subcutaneous tissues for adjunctive postoperative pain control and hemostasis. A soft, sterile dressing was applied. All sponge, needle and instrument counts were correct at the end of the case. The patient tolerated the procedure well and was taken to the recovery room in stable condition. Given the extent of the surgery and intraoperative blood loss, the patient will be admitted for obs ervation, pain management and continued monitoring.
[2019-01-28 16:50] LABS: Glucose,Whole Blood 179 mg/dL (75-99)
[2019-01-28 20:28] LABS: Glucose,Whole Blood 216 mg/dL (75-99)
[2019-01-29] MEDS: LACTATED RINGERS 1,000 ML IV SCH ×2 (01:41)
[2019-01-29] MEDS: INSULIN ASPART (NovoLOG) 100 UNIT/ML VIAL SQ SCH ×3 (02:16→11:42)
[2019-01-29 02:26] LABS: Glucose,Whole Blood 129 mg/dL (75-99)
[2019-01-29 07:06] LABS: Basophils % (A) 0 %; Eosinophils # (A) 0.1 k/uL (0-0.7); Eosinophils % (A) 1 %; HCT 29.8 % (39.0-53.0); HGB 9.6 gm/dL (13.0-17.5); Lymphocytes # (A) 2.5 k/uL (1.0-4.8); Lymphocytes % (A) 26 %; MCHC 32.3 g/dL (31.0-37.0); Mean Platelet Volume 6.7; Monocytes # (A) 0.4 k/uL (0-1.0); Monocytes % (A) 4 %; Neutrophils # (A) 6.6 k/uL (1.3-7.7); Neutrophils % (A) 67 %; Platelet Count 234 k/uL (150-450); RBC 3.01 m/uL (4.30-5.90); RDW 13.3 % (11.5-15.5); WBC 9.8 k/uL (3.8-10.6)
[2019-01-29 07:07] LABS: Glucose,Whole Blood 89 mg/dL (75-99)
[2019-01-29] MEDS: ASPIRIN 81 MG PO SCH (07:21)
[2019-01-29] MEDS: HYDROcodone/APAP 5-325MG 1 EACH TAB PO PRN ×2 (07:21→13:47)
[2019-01-29] MEDS: CLOPIDOGREL 75 MG TAB PO SCH (07:21)
[2019-01-29] MEDS: ATORVASTATIN 80 MG TAB PO SCH (07:21)
[2019-01-29] MEDS: LISINOPRIL 10 MG TAB PO SCH (07:21)
[2019-01-29 07:23] LABS: Albumin 3.5 g/dL (3.5-5.0); Calcium 8.4 mg/dL (8.4-10.2); Potassium 4.7 mmol/L (3.5-5.1); Total Bilirubin 0.6 mg/dL (0.2-1.3); Total Protein 6.3 g/dL (6.3-8.2)
[2019-01-29 07:44] VITALS: BP 115/67; PULSE 79; RESP 16; TEMP 98.7
[2019-01-29 11:41] LABS: Glucose,Whole Blood 141 mg/dL (75-99)
== END 2019-01-29 14:00 ==
LOC: OR 13:45 → 4SSUR 21:56 → OR 01-29 08:03
PROVIDERS: ADMIT Orthopaedic Surgery; ATTEND Orthopaedic Surgery
DX: S42.342G Displaced spiral fracture of shaft of humerus, left arm, subsequent encounter for fracture with delayed healing (principal); E11.42 Type 2 diabetes mellitus with diabetic polyneuropathy; I10 Essential (primary) hypertension; E78.5 Hyperlipidemia, unspecified; H35.30 Unspecified macular degeneration; H91.90 Unspecified hearing loss, unspecified ear; R26.9 Unspecified abnormalities of gait and mobility; H54.8 Legal blindness, as defined in USA; F32.9 Major depressive disorder, single episode, unspecified; W10.1XXD Fall (on)(from) sidewalk curb, subsequent encounter; Z95.5 Presence of coronary angioplasty implant and graft; Z79.1 Long term (current) use of non-steroidal anti-inflammatories (NSAID); Z79.02 Long term (current) use of antithrombotics/antiplatelets; Z79.82 Long term (current) use of aspirin; Z79.4 Long term (current) use of insulin; Z79.891 Long term (current) use of opiate analgesic; Z79.899 Other long term (current) drug therapy; Z88.5 Allergy status to narcotic agent; Z96.653 Presence of artificial knee joint, bilateral; Z87.891 Personal history of nicotine dependence; Z87.2 Personal history of diseases of the skin and subcutaneous tissue
CPT/HCPCS: 24430; 97530; 97162; 64415; 76942; 86900; 86901; 80053; 80048; 85025; 85027 ×2; 86850; 73060; G0378; C1713 ×2; J1100; J2710; J0690 ×2; J2405 ×2; J2001; J3010; J1170 ×2; J2795; J2370; J0330; J2704

== ENCOUNTER 2019-12-08 10:50 | Day surgery (SDC) | payer MEDICARE, OTHER ==
[2019-12-06 11:22] VITALS: BMI 26.7
[~2019-12-08 10:50] MED LIST changes: +HYDROmorphone 0.5 MG/0.5 ML SYRINGE IVP PRN; +LIDOCAINE 1% (10MG/ML) FOR IV START INTRADERMA PRN; -LIDOCAINE 1% 20 ML VIAL (10MG/ML) FOR IV START INTRADERMA PRN; -SCOPOLAMINE 1.5MG/72HR PATCH TRANSDERM ONE
[2019-12-08] MEDS: LACTATED RINGERS 1,000 ML IV SCH ×3 (11:27→16:47)
[2019-12-08 11:28] LABS: Glucose,Whole Blood 171 mg/dL (75-99)
[2019-12-08] MEDS ORDERED: HYDROmorphone (PF) 1 MG/ML ONE (12:38)
[2019-12-08] MEDS ORDERED: NEOSTIGMINE 1 MG/ML 10 ML VIAL ONE (12:38)
[2019-12-08] MEDS ORDERED: PROPOFOL 10 MG/ML 20 ML VIAL IV ONE (12:38)
[2019-12-08] MEDS ORDERED: fentaNYL (PF) 50 MCG/ML 2 ML AMP ONE (12:38)
[2019-12-08] MEDS ORDERED: MIDAZOLAM 2 MG/2 ML VIAL ONE (12:38)
[2019-12-08] MEDS ORDERED: ROCURONIUM BROMIDE 10 MG/ML 5 ML VIAL IV ONE (12:38)
[2019-12-08] MEDS ORDERED: LIDOCAINE 1% INJ 10MG/ML (20 ML MDV) ONE (12:38)
[2019-12-08] MEDS ORDERED: GLYCOPYRROLATE 0.2 MG/ML 2 ML VIAL ONE (12:38)
[2019-12-08] MEDS ORDERED: LACTATED RINGERS 1,000 ML IV ONE ×2 (14:13)
[2019-12-08] MEDS ORDERED: LIDOCAINE 1%-EPI 1:100,000 20 ML VIAL SQ ONE ×2 (14:30→15:22)
--- NOTE | 2019-12-08 14:49 | XR ---
Limited left humerus HISTORY: Hardware removal 4 intraoperative images document the procedure
--- NOTE | 2019-12-08 14:50 | FL ---
Fluoroscopy HISTORY: Removal of hardware 33 seconds fluoroscopy time supplied to the referring clinician. 4 intraoperative C-arm images docum ent the procedure. See dictated report from orthopedic surgery.
[2019-12-08] MEDS ORDERED: HYDROmorphone 0.5 MG/0.5 ML SYRINGE IVP PRN (15:50)
--- NOTE | 2019-12-08 15:50 | P.OP ---
Date of Procedure: 12/08/19 Preoperative Diagnosis: 1. 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 Insulin-dependent diabetes mellitus 3. Severe vitamin D deficiency Postoperative Diagnosis: 1. 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 Insulin-dependent diabetes mellitus 3. Severe vitamin D deficiency Procedure(s) Performed: 1. Removal of hardware - left humerus 2. Dynamic fluoroscopic examination under anesthesia - left humerus Anesthesia: LETICIA Surgeon: Gigi Graves Employment Specialist/Program Manager #1: Markus Che Employment Specialist/Program Manager #2: Ruth Ann Montoya Estimated Blood Loss (ml): 250 Condition: stable Disposition: PACU Indications for Procedure: The patient is a pleasant 79-year-old gentleman who sustained a displaced left humeral shaft fracture who underwent open reduction and internal fixation with plates and screws (after initial unsuccessful treatment with bracing). The fracture failed to heal, despite vitamin D supplementation and use of a bone stimulator. Follow up x-rays demonstrated a persistent nonunion with subsequent hardware loosening & breakage. Treatment options (and associated risks and benefits) were discussed in the office, including continued nonsurgical treatment versus removal of hardware versus revision ORIF with bone grafting. We had a lengthy discussion regarding the pros and cons of each treatment option. We discussed the potential for persistent nonunion and possible symptomatic instability after hardware removal. He expressed understanding, willingness to accept these risks and wished to undergo removal of hardware without any further treatment for the fracture at this time. In preop, the patient denied any additional questions or concerns and wished to proceed with surgery. Consent forms were signed. The operative site was confirmed and marked. Description of Procedure: The patient was brought to the operating suite by the anesthesia team. He was transferred to the operating table and general anesthesia was administered uneventfully. He was placed in the beachchair position and all bony prominences were well-padded. The left upper extremity was then prepped and draped in standard, sterile fashion. A time-out was performed, confirming patient identifiers, the operative side, site and the procedure to be performed: all team members expressed agreement. The previous deltopectoral/anterolateral incision was utilized. The skin was sharply incised and full-thickness skin flaps were elevated. The deltopectoral interval was identified and bluntly developed. The deltoid was mobilized. Of note, the previously made deltoid split had not healed. The clavipectoral fascia was released, along with the anterior aspect of the coracoacromial ligament, to expose the proximal humerus. The plate was identified. The overlying fibrous tissue was released. The 3 locking screws in the head were grossly loose and were removed easily. Dissection proceeded distally to expose the screws in the metadiaphysis. The previous interval within the brachialis muscle was identified and developed. There was a moderate amount of scar tissue. Two more shaft screws were identified and removed. Intraoperative fluoroscopy was used to confirm the location of the most distal screws. These were carefully exposed and removed without difficulty. All were grossly loose. A [place] and tolbert elevator were used to release adhesions between the plate and the bone. Once released, the plate was explanted without difficulty. Two broken screws were left in situ, as the were within the bone and were not prominent or grossly loose. A broken screw head was identified distally and was removed. Final x-rays were obtained. No iatrogenic fractures were identified. The fracture was then evaluated with dynamic fluoroscopy: There was no gross motion with passive internal and external rotation; valgus stress produced obvious angulation and motion at the fracture site. However, the arm was not unstable with passive motion of the shoulder or elbow. The wound was copiously irrigated with normal saline. The released portion of the coracoacromial ligament was repaired with #1 Vicryl sutures. The deltopectoral interval was loosely reapproximated with interrupted #1 Vicryl sutures. The wound was closed in layers with 0 Vicryl, 2-0 Vicryl and alex for the skin. Local anesthetic with epinephrine was injected into the perioperative subcutaneous tissues for adjunct postoperative pain control and hemostasis. A soft, sterile dressing was applied. All sponge, needle and instrument counts were correct at the end of the case. The patient tolerated the procedure well. He was transferred to a hospital bed and taken to recovery in stable condition.
[2019-12-08] MEDS ORDERED: oxyCODONE-APAP 5-325MG 1 EACH TAB PO PRN (15:56)
[2019-12-08] MEDS ORDERED: ONDANSETRON 4 MG/2 ML VIAL IVP ONE (16:10)
[2019-12-08 16:31] LABS: Glucose,Whole Blood 235 mg/dL (75-99)
[2019-12-08] MEDS ORDERED: INSULIN ASPART (NovoLOG) 100 UNIT/ML VIAL SQ ONE (16:35)
--- NOTE | 2019-12-08 16:57 | XR ---
EXAMINATION TYPE: XR humerus LT DATE OF EXAM: 12/08/2019 COMPARISON: 01/27/2019 HISTORY: Postop TECHNIQUE: 2 views FINDINGS: There are lateral skin alex along the mid and proximal humerus. There is a broken screw in the mid shaft of the left humerus. There is a broken screw in the humeral neck. There is ununited oblique fracture of the proximal shaft of the humerus. The lateral plate has been removed since old e xam. IMPRESSION: There is nonunion of the humerus fracture. There is been hardware removal.
[2019-12-08] MEDS: traMADol 50 MG TAB PO PRN (18:31)
[2019-12-08 20:21] LABS: Glucose,Whole Blood 260 mg/dL (75-99)
[2019-12-08] MEDS: INSULIN ASPART (NovoLOG) 100 UNIT/ML VIAL SQ SCH (20:54)
[2019-12-08] MEDS: lisinopriL 10 MG TAB PO SCH (20:55)
[2019-12-08] MEDS: ATORVASTATIN 40 MG TAB PO SCH (20:55)
[2019-12-08] MEDS: MELOXICAM 7.5 MG TAB PO SCH (20:55)
[2019-12-08] MEDS ORDERED: INSULIN DETEMIR (LEVEMIR) 100 UNIT/ML SYR SQ SCH (21:00)
[2019-12-09] MEDS: traMADol 50 MG TAB PO PRN ×3 (00:15→17:25)
[2019-12-09 01:01] LABS: Glucose,Whole Blood 296 mg/dL (75-99)
[2019-12-09] MEDS: LACTATED RINGERS 1,000 ML IV SCH (06:24)
[2019-12-09 07:25] LABS: Glucose,Whole Blood 195 mg/dL (75-99)
[2019-12-09] MEDS: INSULIN ASPART (NovoLOG) 100 UNIT/ML VIAL SQ SCH ×3 (07:30→17:25)
[2019-12-09] MEDS: lisinopriL 10 MG TAB PO SCH (07:30)
[2019-12-09] MEDS: MELOXICAM 7.5 MG TAB PO SCH (07:31)
[2019-12-09] MEDS: ATORVASTATIN 40 MG TAB PO SCH (07:31)
[2019-12-09] MEDS ORDERED: CLOPIDOGREL 75 MG TAB PO SCH (09:00)
[2019-12-09] MEDS ORDERED: ASPIRIN 81 MG PO SCH (09:00)
[2019-12-09 11:55] LABS: Glucose,Whole Blood 160 mg/dL (75-99)
[2019-12-09] MEDS ORDERED: TAMSULOSIN 0.4 MG CAP.ER.24H PO STA (12:20)
--- NOTE | 2019-12-09 13:17 | P.DS ---
Providers Date of admission: 12/08/2019 Expected date of discharge: 12/09/19 Attending physician: Gigi Graves DO Consults: 12/09/19 10:23 Consult Physician Stat Consulting Provider: Reggie Perez Consult Reason/Comments: medical management Do you want consulting provider notified?: Yes Primary care physician: Yuriy Carrero - Discharge Diagnosis(es) (1) Left shoulder pain Current Visit: Yes Status: Acute (2) Hyperglycemia Current Visit: Yes Status: Acute (3) Urinary retention Current Visit: Yes Status: Acute (4) S/P hardware removal Current Visit: Yes Status: Acute (5) Fracture of shaft of left humerus with delayed healing Current Visit: No Status: Acute Hospital Course: This is a pleasant 79-year-old male who presented with left humeral shaft fracture nonunion with painful retained hardware. He was admitted for removal of hardware at the left humerus and fluoroscopic examination of the left humerus under sedation. The patient tolerated the procedure well and did well postoperatively. He is not currently complaining of any pain at the upper extremity. He does not need pain medication as he states he just recently picked up a prescription for Ultram 50 mg which he'll plan to take as prescribed as needed for pain control. Postoperatively, he has had difficulty with urination. He has had some retention. He has undergone straight catheterization twice. Patient states he does have difficulty with urination outside of his home. He states this happens frequently to him. He does feel he be able to urinate better once he is at home. He's also had some elevated glucose levels postoperatively and states had elevated to 296 overnight. We discussed from an orthopedic standpoint in regards to his left shoulder he would be cleared for discharge. However, we discussed he will need consultation with medicine to clear him first in regards to his urinary retention and significantly high glucose levels. Patient states he understands. Patient states he is hoping to clear for discharge home today. Condition on day of discharge stable. Patient will be discharged home. Patient was cleared preoperatively for surgery by Dr. Carrero. Patient currently denies any nausea, vomiting, fever, or chills. Patient is eating without difficulty. Should keep dressing intact over the left humerus of the next 48 hours. After 48 hours, dressing may be removed and changed to gauze and tape. If the incision site remains dry over the next 72 hours, patient may shower without a dressing over the incision site. Keep hollie intact at the incision site. Stable to plan to be removed in the outpatient setting in approximately 10-14 days. Patient may use sling for the left upper extremity for comfort as needed. Use the left upper extremity for activity as tolerated. Patient may resume other previously prescribed home medications. Physical Exam on day of discharge: Patient is awake, alert, and oriented 3 Vital signs stable Good chest excursion with deep inspiration and expiration Dressing over the left shoulder and left humerus is clean, dry, and intact and well padded No significant pain with palpation around the dressing site Patient is able to bend his left elbow, perform active range of motion left wrist, and fingers the left hand without difficulty Neurovascular intact left upper extremity Procedures: Removal of hardware at the left humerus and fluoroscopic examination of the left humerus under sedation Patient Condition at Discharge: Stable Plan - Discharge Summary Discharge Rx Participant: Yes New Discharge Prescriptions: New Tamsulosin [Flomax] 0.4 mg PO DAILY #30 cap Continue Aspirin 81 mg PO DAILY #30 Clopidogrel [Plavix] 75 mg PO DAILY #30 tablet Meloxicam [Mobic] 7.5 mg PO BID Insulin Detemir [Levemir Flextouch] 70 unit SQ HS Ergocalciferol [Vitamin D2 (DRISDOL)] 50,000 unit PO SUTH Lisinopril [Zestril] 10 mg PO BID HYDROcodone/APAP 5-325MG [Stringer 5-325] 1 tab PO Q4HR PRN #50 tab PRN Reason: Pain Atorvastatin [Lipitor] 40 mg PO BID traMADol HCL 50 mg PO DAILY PRN PRN Reason: Pain Discharge Medication List Aspirin 81 mg PO DAILY #30 09/30/16 [Rx] Clopidogrel [Plavix] 75 mg PO DAILY #30 tablet 09/30/16 [Rx] Insulin Detemir [Levemir Flextouch] 70 unit SQ HS 11/17/18 [History] Meloxicam [Mobic] 7.5 mg PO BID 11/17/18 [History] Ergocalciferol [Vitamin D2 (DRISDOL)] 50,000 unit PO SUTH 01/25/19 [History] Lisinopril [Zestril] 10 mg PO BID 01/25/19 [History] HYDROcodone/APAP 5-325MG [Stringer 5-325] 1 tab PO Q4HR PRN #50 tab 01/28/19 [Rx] Atorvastatin [Lipitor] 40 mg PO BID 12/06/19 [History] traMADol HCL 50 mg PO DAILY PRN 12/06/19 [History] Tamsulosin [Flomax] 0.4 mg PO DAILY #30 cap 12/09/19 [Rx] Follow up Appointment(s)/Referral(s): Terence Dominguez MD [STAFF PHYSICIAN] - 1 Week Gigi Graves DO [Medical Doctor] - 10 Days (10-14 days) Activity/Diet/Wound Care/Special Instructions: Keep dressing on for 48 hours then may change with gauze and tape. Hollie to be removed in the office in 10-14 days. May use arm sling for comfort. May use left arm as tolerated. Follow up with Dr. Graves in 10-14 days in the office. Discharge Disposition: HOME SELF-CARE
[2019-12-09 15:43] VITALS: BP 102/58; PULSE 76; RESP 18; TEMP 97.9
[2019-12-09 17:06] LABS: Glucose,Whole Blood 198 mg/dL (75-99)
--- NOTE | 2019-12-09 20:46 | P.CONS ---
History of Present Illness - Reason for Consult Consult date: 12/09/19 Medical management Requesting physician: Gigi Graves - Chief Complaint Decreased urine output - History of Present Illness Consultation: This is a very pleasant 79-year-old patient Dr. Carrero. Chronic stable medical conditions include coronary artery disease with stent, diabetes, hypertension, hyperlipidemia, poor eyesight, osteoarthritis. Had a TIA over 15 years ago. Patient has a left humeral shaft fracture nonunion with painful retained hardware was removed today. Has a dressing over the left arm. Postprocedure tolerating a diet. Patient also had a urinary retention. Straight catheterization was done twice. Patient had not any problem with his bladder before. He does state that he takes time to initiate the unit is got a poor stream. Patient's son and at the bedside. No chest pain or shortness of breath. Review of systems: GEN.: None EYES: Poor vision HEENT: None NECK: None RESPIRATORY: None CARDIOVASCULAR: None GASTROINTESTINAL: None GENITOURINARY: Decreased urine output MUSCULOSKELETAL: Joint pains LYMPHATICS: None HEMATOLOGICAL: None PSYCHIATRY: None NEUROLOGICAL: Poor eyesight Past medical history to include: Coronary artery disease with stent, TIA, diabetes, legally blind, hyperlipidemia, osteoarthritis, Patient smoked a pack a day for 40 years stopped in his ago. Alcohol occasionally. Lives with his . Physical examination: VITAL SIGNS: 98.5, 78, 19, 111/70, 93% room air GENERAL: BMI 26.3, sitting up in bed, eating. EYES: Pupils equal. Conjunctiva normal. Decreased vision HEENT: External appearance of nose and ears normal, oral cavity grossly normal. NECK: JVD not raised; masses not palpable. HEART: First and second heart sounds are normal; no edema. LUNGS: Respiratory rate normal; clear to auscultation. ABDOMEN: Soft, nontender, liver spleen not palpable, no masses palpable. PSYCH: Alert and oriented x3; mood and affect normal MUSCULAR skeletal: Dressing over the left shoulder, evidence of OA the hands. NEUROLOGICAL: Cranial nerves grossly intact; no facial asymmetry, power and sensation grossly intact. LYMPHATICS: No lymph nodes palpable in the axilla and neck INVESTIGATIONS, reviewed in the clinical context: Accu-Cheks noted Assessment: -Acute urine outflow obstruction from underlying BPH clinically. We'll start the patient on Flomax. Will need further testing as an outpatient. -Coronary artery with stent -Diabetes mellitus type 2 on oral hypoglycemic -Legally blind -Primary osteoarthritis -Left humerus hardware removed for malunion and pain Plan: Home medications to continue. Flomax is being added. Care was discussed with the patient. Once he may daily can go home. Patient to follow-up with Dr. perez from urology upon discharge. Care was discussed with the patient's son at the bedside. Questions were answered. Thank you Dr. Perez. Past Medical History Past Medical History: Coronary Artery Disease (CAD), CVA/TIA, Diabetes Mellitus, Eye Disorder, Hyperlipidemia, Myocardial Infarction (MS), Osteoarthritis (OA) Additional Past Medical History / Comment(s): TIA 15 yrs ago-no residual effects, legally blind, hx fx left humerus(plate loose), constipation, Last Myocardial Infarction Date:: 2016 History of Any Multi-Drug Resistant Organisms: None Reported Past Surgical History: Heart Catheterization With Stent, Orthopedic Surgery Additional Past Surgical History / Comment(s): 10 knee surgeries-nick arthroscopies, left knee replacement, partial rt knee replacement, Nick shoulder rotator cuff, left foot surgery, one cardiac stent, left arm surgery for fx Past Anesthesia/Blood Transfusion Reactions: No Reported Reaction Date of Last Stent Placement:: 2016 Past Psychological History: No Psychological Hx Reported Smoking Status: Former smoker Past Alcohol Use History: Occasional Additional Past Alcohol Use History / Comment(s): quit smoking 10 yrs ago, smoked for 40 yrs, 1 PPD Past Drug Use History: None Reported - Past Family History Father Family Medical History: Cancer Mother Family Medical History: Cancer Sister(s) Family Medical History: Cancer Daughter(s) Family Medical History: No Reported History Son(s) Family Medical History: No Reported History Medications and Allergies Home Medications Medication Instructions Recorded Confirmed Type Aspirin 81 mg PO DAILY #30 09/30/16 12/08/19 Rx Clopidogrel [Plavix] 75 mg PO DAILY #30 tablet 09/30/16 12/08/19 Rx Insulin Detemir [Levemir Flextouch] 70 unit SQ HS 11/17/18 12/08/19 History Meloxicam [Mobic] 7.5 mg PO BID 11/17/18 12/08/19 History Ergocalciferol [Vitamin D2 50,000 unit PO SUTH 01/25/19 12/08/19 History (DRISDOL)] Lisinopril [Zestril] 10 mg PO BID 01/25/19 12/08/19 History HYDROcodone/APAP 5-325MG [Smilax 1 tab PO Q4HR PRN #50 tab 01/28/19 12/08/19 Rx 5-325] Atorvastatin [Lipitor] 40 mg PO BID 12/06/19 12/08/19 History traMADol HCL 50 mg PO DAILY PRN 12/06/19 12/08/19 History Tamsulosin [Flomax] 0.4 mg PO DAILY #30 cap 12/09/19 Rx Allergies Allergy/AdvReac Type Severity Reaction Status Date / Time morphine AdvReac Increased Verified 12/08/19 11:33 Blood Pressure Physical Exam Vitals: Vital Signs Temp Pulse Pulse Resp BP BP Pulse Ox 12/09/19 07:00 98.5 F 78 19 111/70 93 L 12/09/19 00:45 98.9 F 103 H 16 131/70 96 12/09/19 00:16 16 12/08/19 19:01 98.2 F 95 18 153/71 95 12/08/19 17:17 98.3 F 91 16 128/71 96 12/08/19 16:45 86 16 118/62 100 12/08/19 16:15 84 16 131/69 97 12/08/19 16:00 88 16 133/65 100 12/08/19 15:47 89 16 141/68 100 12/08/19 15:33 97.6 F 80 16 108/44 93 L 12/08/19 11:12 97.8 F 61 16 136/70 97 Intake and Output 12/08/19 12/09/19 12/09/19 22:59 06:59 14:59 Intake Total 850 400 Output Total 250 1500 800 Balance 600 -1100 -800 Intake: IV 200 400 0.9% Normal Saline 400 Intake, IV Titration 650 Amount Lactated Ringers 1,000 ml 600 @ 20 mls/hr IV .Q24H [facility] Rx#:[id number] ceFAZolin 2 gm In Sodium 50 Chloride 0.9% 50 ml @ 100 mls/hr IVPB Q8H [facility] Rx#: [id number] Output: Urine 1500 800 Straight 1500 800 Estimated Blood Loss 250 Other: # Voids 0 Weight 87.9 kg Results Labs: Abnormal Lab Results - Last 24 Hours (Table) 12/08/19 12/08/19 12/08/19 Range/Units 11:26 16:30 20:20 POC Glucose (mg/dL) 171 H 235 H 260 H (75-99) mg/dL 12/09/19 12/09/19 Range/Units 00:59 07:23 POC Glucose (mg/dL) 296 H 195 H (75-99) mg/dL
== END 2019-12-09 18:56 | disposition home or self-care (01) ==
LOC: OR 10:50 → 4SSUR 15:33 → OR 12-09 18:56
PROVIDERS: ATTEND Orthopaedic Surgery
DX: T84.84XA Pain due to internal orthopedic prosthetic devices, implants and grafts, initial encounter (principal); S42.302K Unspecified fracture of shaft of humerus, left arm, subsequent encounter for fracture with nonunion; M75.51 Bursitis of right shoulder; E55.9 Vitamin D deficiency, unspecified; I10 Essential (primary) hypertension; E11.65 Type 2 diabetes mellitus with hyperglycemia; M77.9 Enthesopathy, unspecified; H91.90 Unspecified hearing loss, unspecified ear; F32.9 Major depressive disorder, single episode, unspecified; Z88.5 Allergy status to narcotic agent; Z95.5 Presence of coronary angioplasty implant and graft; Z96.653 Presence of artificial knee joint, bilateral; Z98.890 Other specified postprocedural states; Z87.891 Personal history of nicotine dependence; Z79.4 Long term (current) use of insulin; Z79.82 Long term (current) use of aspirin; Z79.02 Long term (current) use of antithrombotics/antiplatelets; Z79.899 Other long term (current) drug therapy; W19.XXXD Unspecified fall, subsequent encounter
CPT/HCPCS: 73060 ×2; 20680; J1100; J0690 ×2; J2405